=== PATIENT | female | born 1990 | race Caucasian/White ===

== ENCOUNTER 2018-05-05 06:18 | Emergency (ER) | payer OTHER, SELFPAY ==
--- OUTSIDE RECORDS SUMMARY | 2018-05-05 06:21 | XMS REPORT | Continuity of Care Document ---
:1990 Author Organization Interface Problems Problem Status Onset Classification Date Comments Source Date Reported 39 WKS PREG Active 06/08/20 [facility] CONTRACTIONS 17 City Active 06/08/20 [facility] DELIVERY 17 City PREG/BLEEDING Active 02/11/20 [facility] 14 Hospital Resolved 09/02/20 Problem 06/15/2017 [facility] 11 City OTHER Active 08/22/20 [facility] 11 Hospital BITE Active 08/17/[address] Active [facility] RELATED [facility] CONDITIONS, UNSP, UNSP Medications Medication Details Route Status Patient Ordering Order Source Instructions Provider Date ibuprofen 600 mg 600 mg=1 tab, Active oral tablet PO, Q6H, X 3 2016 [facility] day, # 12 tab, City 0 Refill(s) Acetaminophen 300 2 tab, PO, Q4H, Active MG / Codeine PRN Pain Score 2016 [facility] Phosphate 30 MG 4-6, X 3 day, # [facility] Oral Tablet 24 tab, 0 [Tylenol with Refill(s) Codeine #3] Docusate Sodium 100 mg=1 cap, Active 100 MG Oral PO, BID, PRN 2016 [facility] Capsule Constipation, # City 42 cap, 0 Refill(s) Acetaminophen 300 2 tab, Route: No Longer MG / Codeine PO, Drug Form: Active 2016 [facility] Phosphate 30 MG TAB, Dosing [facility] Oral Tablet Weight 81.818, [Tylenol with kg, Q4H, PRN Codeine #3] Pain Score 4-6, Start date: 06/10/17 8:27:00 CDT, Duration: 30 day, Stop date: 07/10/17 8:26:00 CDTNotes: Do not exceed 4gm/day of acetaminophen. (Same as: Tylenol with Codeine # 3) Saline Flush 0.9% 10 ml, Route: Inactive IVP, Drug Form: 2016 [facility] INJ, Dosing City Weight 81.818, kg, Q12H, Start date: 06/09/17 9:00:00 CDT, Duration: 30 day, Stop date: 07/08/17 21:00:00 CDTNotes: (Same as: BD Posiflush) 1 tab, Route: No Longer Multivitamins oral PO, Drug Form: [facility] 2016 [facility] tablet TAB, Dosing City Weight 81.818, kg, Daily, Start date: 06/09/17 9:00:00 CDT, Duration: 30 day, Stop date: 07/08/17 9:00:00 CDT Sodium Chloride 25 mL, Route: No Longer 0.9% IV IV, Start date: [facility] 2016 [facility] 06/09/17 [facility] 8:26:00 CDT, Duration: 30 day, Stop date: 07/09/17 8:25:00 CDT, PRN Line Flush BD Normal Saline 10 mL, Route: No Longer Flush IV, Drug Form: [facility] 2016 [facility] INJ, PRN, PRN [facility] Line Flush, Start date: 06/09/17 8:26:00 CDT, Duration: 30 day, Stop date: 07/09/17 8:25:00 CDTNotes: (Same as: BD Posiflush) Hydromorphone 0.2 mg, 0.1 mL, Inactive Route: IVP, 2016 [facility] Drug form: INJ, City Q3H, Dosing Weight 81.818, kg, PRN Pain Score 7-10, Start date: 06/09/17 8:23:00 CDT, Duration: 30 day, Stop date: 07/09/17 8:22:00 CDTNotes: Same as Dilaudid Ibuprofen 600 mg, 1 tab, No Longer Route: PO, Drug Active 2016 [facility] form: TAB, Q6H, [facility] Dosing Weight 81.818, kg, Start date: 06/09/17 0:00:00 CDT, Duration: 30 day, Stop date: 07/08/17 18:00:00 CDTNotes: (Same as: Motrin) "Do Not Crush" Take with food. Naloxone 0.4 mg, 1 mL, No Longer Route: IVP, [facility] 2016 [facility] Drug form: INJ, City ONCALL, Dosing Weight 81.818, kg, Start date: 06/08/17 23:00:00 CDT, Duration: 24 hr, Stop date: 06/09/17 22:59:00 CDTNotes: Same as Narcan 0.5 ML Bordetella 0.5 mL, Route: No Longer pertussis IM, Drug Form: Active 2016 [facility] filamentous SUSP, Dosing [facility] hemagglutinin Weight 81.818, vaccine, kg, ONCALL, inactivated 0.01 Start date: MG/ML / Bordetella 06/08/17 pertussis fimbriae 23:00:00 CDT, 2/3 vaccine, Duration: 1 inactivated 0.01 doses or times, MG/ML / Bordetella Stop date: pertussis 07/09/17 pertactin vaccine, 0:00:00 inactivated 0.006 CDTNotes: (Tdap MG/ML / Bordetella ) For Adolecent pertussis toxoid and Adult use vacci For IM Use. Same as: Adacel (Tdap) M-M-R II 0.5 mL, Route: No Longer SUB-Q, Drug Active 2016 [facility] Form: PDR/INJ, [facility] Dosing Weight 81.818, kg, ONCALL, Start date: 06/08/17 23:00:00 CDT, Duration: 1 doses or times, Stop date: 07/09/17 0:00:00 CDTNotes: (Same as: M-M-R II) (measles-mumps- rubella virus vaccine 0.5 ml INJ VL) WASTE: F/P - Red; E -Red GIVE PRIOR TO DISCHARGE fentaNYL (ANES) Route: IV, Drug Inactive form: INJ, 2016 [facility] ONCE, Stop [facility] date: 06/08/17 22:53:00 CDT Pitocin (ANES) Route: IV, Drug Inactive form: SOLN, 2016 [facility] ONCE, Stop [facility] date: 06/08/17 22:52:00 CDT Tramadol 100 mg, 2 tab, No Longer Route: PO, Drug Active 2016 [facility] form: TAB, Q6H, [facility] Dosing Weight 81.818, kg, PRN Pain Score 7-10, Start date: 06/08/17 22:52:00 CDT, Duration: 30 day, Stop date: 07/08/17 22:51:00 CDTNotes: Not to exceed 400mg/day. (Same As: Ultram) Saline Flush 0.9% 10 ml, Route: No Longer IVP, Drug Form: Active 2016 [facility] INJ, Dosing City Weight 81.818, kg, PRN, PRN Line Flush, Start date: 06/08/17 22:52:00 CDT, Duration: 30 day, Stop date: 07/08/17 22:51:00 CDTNotes: (Same as: BD Posiflush) Simethicone 160 mg, 2 tab, No Longer Route: PO, Drug Active 2016 [facility] form: [place], [facility] Q8H, Dosing Weight 81.818, kg, PRN Gas, Start date: 06/08/17 22:52:00 CDT, Duration: 30 day, Stop date: 07/08/17 22:51:00 CDTNotes: (Same as: Mylicon) zolpidem 5 mg, 1 tab, No Longer Route: PO, Drug Active 2016 [facility] form: TAB, City Bedtime, Dosing Weight 81.818, kg, PRN Insomnia, Start date: 06/08/17 22:52:00 CDT, Duration: 30 day, Stop date: 07/08/17 22:51:00 CDTNotes: (Same As: Ambien) lanolin topical 1 appl, Route: No Longer cream TOP, PRN, Drug Active 2016 [facility] form: OINT, PRN [facility] Other -See Comment, Start date: 06/08/17 22:52:00 CDT, Duration: 30 day, Stop date: 07/08/17 22:51:00 CDTNotes: (Same as:Lanolin) Acetaminophen 650 mg, 2 tab, No Longer Route: PO, Drug Active 2016 [facility] form: TAB, Q4H, [facility] Dosing Weight 81.818, kg, PRN Other -See Comment, Start date: 06/08/17 22:52:00 CDT, Duration: 30 day, Stop date: 07/08/17 22:51:00 CDTNotes: Do not exceed 4 gm/day. (Same as: Tylenol) Bisacodyl 15 mg, 3 tab, No Longer Route: PO, Drug [facility] 2016 [facility] form: ECTAB, City Daily, Dosing Weight 81.818, kg, PRN Other -See Comment, Start date: 06/08/17 22:52:00 CDT, Duration: 30 day, Stop date: 07/08/17 22:51:00 CDTNotes: (Same As: Dulcolax, Correctol) (Do Not Crush) "Do Not Crush" Docusate 100 mg, 1 cap, No Longer Route: PO, Drug Active 2016 [facility] form: CAP, BID, [facility] Dosing Weight 81.818, kg, PRN Constipation, Start date: 06/08/17 22:52:00 CDT, Duration: 30 day, Stop date: 07/08/17 22:51:00 CDTNotes: (Same as: Colace) (Do Not Crush) Lactated Ringers 1,000 mL, Rate: No Longer 1,000 mL 100 ml/hr, Active 2016 [facility] Infuse over: 10 City hr, Route: IV, Dosing Weight 81.818 kg, Total Volume: 1,000, Start date: 06/08/17 22:52:00 CDT, Duration: 30 day, Stop date: 07/08/17 22:51:00 CDT Oxytocin 30 unit, 500 No Longer mL, Rate: 42 Active 2016 [facility] ml/hr, Infuse City over: 11.9 hr, Dosing Weight 81.818, kg, Route: IV, Total Volume: 500 mL, Start date: 06/08/17 22:52:00 CDT, Duration: 2 day, Stop date: 06/10/17 22:51:00 CDT, Replace Every: 11.9 hr dexamethasone Route: IV, Drug Inactive (ANES) form: INJ, 2016 [facility] ONCE, Stop City date: 06/08/17 22:42:00 CDT bupivacaine (ANES) Route: Inactive INTRATHECAL, 2016 [facility] Drug Form: INJ, [facility] ONCE, Stop date: 06/08/17 22:32:00 CDT phenylephrine Route: IV, Drug Inactive (ANES) form: INJ, 2016 [facility] , date: 06/08/17 22:32:00 CDT ePHEDrine (ANES) Route: IV, Drug Inactive form: INJ, 2016 [facility] date: 06/08/17 22:32:00 CDT morphine Sulfate Route: IV, Drug Inactive (ANES) form: 2016 [facility] date: 06/08/17 22:32:00 CDT acetaminophen Route: IV, Drug Inactive (ANES) (ANES) form: , 2016 [facility] Start date: [facility] 06/08/17 22:31:00 CDT, Stop date: 06/08/17 23:31:00 CDT metoclopramide Route: IV, Drug Inactive (ANES) form: 2016 [facility] , date: 06/08/17 22:22:00 CDT ondansetron (ANES) Route: IV, Drug Inactive form: , 2016 [facility] , date: 06/08/17 22:22:00 CDT oxytocin (ANES) Route: IV, Drug Inactive (ANES) form: 2016 [facility] Start date: [facility] 06/08/17 22:18:00 CDT, Stop date: 06/08/17 23:18:00 CDT Ondansetron 4 mg, 2 mL, No Longer Route: IVP, Active 2016 [facility] Drug form: INJ, , Dosing Weight 81.818, kg, PRN Nausea & Vomiting, Start date: 06/08/17 22:05:00 CDTNotes: (Same as: [place]) MEDICATION WASTE Product Size: 4 mg Product Wasted: ___ mg Acetaminophen 1,000 mg, 100 No Longer mL, Route: Active 2016 [facility] IVPB, Drug City form: INJ, ONCE, Dosing Weight 81.818, kg, PRN Pain Score 1-3, Start date: 06/08/17 22:05:00 CDT, Duration: 1 doses or times, Stop date: Limited # of timesNotes: Infuse over 15 minutes Do not exceed 4gm/day of acetaminophen MEDICATION WASTE Product Size: 1000 mg Product Wasted: ___ mg Diphenhydramine 12.5 mg, 0.25 No Longer mL, Route: IVP, Active 2016 [facility] Drug form: INJ, City Q6H, Dosing Weight 81.818, kg, PRN Itching, Start date: 06/08/17 22:05:00 CDT, Duration: 30 day, Stop date: 07/08/17 22:04:00 CDTNotes: (Same as: Benadryl) Naloxone 0.4 mg, 1 mL, No Longer Route: IVP, [facility] 2016 [facility] Drug form: INJ, City Q2MIN, Dosing Weight 81.818, kg, PRN Narcotic Reversal, Start date: 06/08/17 22:05:00 CDT, Duration: 8 doses or times, Stop date: Limited # of timesNotes: Same as Narcan Periactin 4 mg, 1 tab, No Longer Route: PO, Drug Active 2016 [facility] form: TAB, TID, [facility] Dosing Weight 81.818, kg, PRN Allergic reaction, Start date: 06/08/17 22:04:00 CDT, Duration: 30 day, Stop date: 07/08/17 22:03:00 CDTNotes: (Same As: Periactin) Diphenhydramine 12.5 mg, 5 mL, No Longer Route: PO, Drug Active 2016 [facility] form: LIQ, Q6H, [facility] Dosing Weight 81.818, kg, PRN Itching, Start date: 06/08/17 22:04:00 CDT, Duration: 30 day, Stop date: 07/08/17 22:03:00 CDTNotes: (Same as: Benadryl) Ondansetron 4 mg, 2 mL, No Longer Route: IVP, Active 2016 [facility] Drug form: INJ, City Q6H, Dosing Weight 81.818, kg, PRN Nausea & Vomiting, Start date: 06/08/17 22:04:00 CDT, Duration: 24 hr, Stop date: 06/09/17 22:03:00 CDTNotes: (Same as: Zofran) MEDICATION WASTE Product Size: 4 mg Product Wasted: ___ mg Acetaminophen 1,000 mg, 2 No Longer tab, Route: PO, Active 2016 [facility] Drug form: TAB, City Q6H, Dosing Weight 81.818, kg, Priority: NOW, Start date: 06/08/17 22:04:00 CDT, Duration: 24 hr, Stop date: 06/09/17 22:00:00 CDTNotes: Max acetaminophen 4000 mg/day (4 gm/day). (Same as: Tylenol Extra Strength) Oxycodone 5 mg, 1 tab, No Longer Hydrochloride 5 MG Route: PO, Drug Active 2016 [facility] Oral Tablet form: TAB, Q4H, [facility] Dosing Weight 81.818, kg, PRN Pain Score 4-6, Start date: 06/08/17 22:04:00 CDT, Duration: 30 day, Stop date: 07/08/17 22:03:00 CDTNotes: (Same as: Roxicodone) ceFAZolin (ANES) Route: IV, Drug Inactive (ANES) form: INJ, 2016 [facility] Start date: [facility] 06/08/17 21:47:00 CDT, Stop date: 06/08/17 22:47:00 CDT LR 1000 mL INJ Route: IV, Inactive (ANES) Total Volume: 2016 [facility] 1,000, Start City date: 06/08/17 21:47:00 CDT, Stop date: 06/08/17 22:47:00 CDT Cefazolin 2 gm, 100 mL, No Longer Route: IVPB, Active 2016 [facility] Drug form: INJ, City ONCALL, Dosing Weight 81.818, kg, Start date: 06/08/17 20:00:00 CDT, Duration: 1 doses or times, Stop date: 07/09/17 0:00:00 CDT, ABX Indication: Surgical ProphylaxisNote s: Same as: Ancef Misoprostol 1,000 No Longer microgram, 5 Active 2016 [facility] tab, Route: ME, City Drug form: TAB, ONCALL, Dosing Weight 81.818, kg, Start date: 06/08/17 20:00:00 CDT, Duration: 30 day, Stop date: 07/08/17 19:59:00 CDTNotes: (Same as:Cytotec) Take with food Methylergonovine 0.2 mg, 1 mL, No Longer Route: IM, Drug [address] form: INJ, Vinny ONCBENITO, Dosing Weight 81.818, kg, Start date: 06/08/17 20:00:00 CDT, Duration: 30 day, Stop date: 07/08/17 19:59:00 CDTNotes: (Same as:Methergine) Carboprost 250 microgram, No Longer 1 mL, Route: [facility] 2016 [facility] IM, Drug form: [facility] INJ, ONCALL, Dosing Weight 81.818, kg, Start date: 06/08/17 20:00:00 CDT, Duration: 30 day, Stop date: 07/08/17 19:59:00 CDTNotes: (Same As: Hemabate) Terbutaline 0.25 mg, 0.25 No Longer mL, Route: [address] SUB-Q, Drug [facility] form: INJ, PATALL, Dosing Weight 81.818, kg, PRN Other -See Comment, Start date: 06/08/17 19:46:00 CDT, Duration: 1 doses or times, Stop date: 07/09/17 0:00:00 CDTNotes: DO NOT USE IN [employer]END[employer] AREA (Same As: Brethine) Oxytocin 30 unit, 500 No Longer mL, Rate: [address] ml/hr, Infuse [facility] over: 11.9 hr, Dosing Weight 81.818, kg, Route: IV, Total Volume: 500 mL, Start date: 06/08/17 19:46:00 CDT, Duration: 1 doses or times, Stop date: 06/09/17 7:39:00 CDT, Replace Every: 11.9 hr Metoclopramide 10 mg, 2 mL, No Longer Route: IVP, [address] Drug form: INJ, [place] Q6H, Dosing Weight 81.818, kg, PRN Nausea & Vomiting, Start date: 06/08/17 19:46:00 CDT, Duration: 30 day, Stop date: 07/08/17 19:45:00 CDTNotes: (Same as: Sanam) Ondansetron 4 mg, 2 mL, No Longer Route: IVP, Active 2016 [facility] Drug form: INJ, City Q8H, Dosing Weight 81.818, kg, PRN Nausea & Vomiting, Start date: 06/08/17 19:46:00 CDT, Duration: 30 day, Stop date: 07/08/17 19:45:00 CDTNotes: (Same as: [place]) MEDICATION WASTE Product Size: 4 mg Product Wasted: ___ mg Morphine 2 mg, 1 mL, No Longer Route: IVP, Active 2016 [facility] Drug form: City SOLN, Q2H, Dosing Weight 81.818, kg, PRN Pain Score 7-10, Start date: 06/08/17 19:46:00 CDT, Duration: 30 day, Stop date: 07/08/17 19:45:00 CDT Citric Acid / 30 mL, Route: No Longer sodium citrate PO, Drug Form: Active 2016 [facility] SOLN, Dosing City Weight 81.818, kg, ONCE, Start date: 06/08/17 19:46:00 CDT, Duration: 1 doses or times, Stop date: 06/08/17 19:46:00 CDTNotes: (Same As: Serenity Rezara-2) Sodium citrate-citric acid (500-334 mg/5 mL): 1 mL contains sodium 1 mEq/mL and bicarbonate 1 mEq/mL Calcium Chloride 1,000 mL, 1,000 No Longer 0.0014 MEQ/ML / ml/hr, Infuse Active [address] [place] [address] Potassium Chloride Over: 1 hr, [facility] 0.004 MEQ/ML / Route: IV, Sodium Chloride 1,000, Drug 0.103 MEQ/ML / form: INJ, Sodium Lactate ONCE, Dosing 0.028 MEQ/ML Weight 81.818 Injectable kg, Start date: Solution 06/08/17 19:46:00 CDT, Stop date: 06/08/17 19:46:00 CDT [place] 5/325 oral 1 tab, PO, Q6H, PO Active [facility] tablet PRN, 20 tab, 2010 [facility] for pain, Substitution Allowed, Maintenance, TAB Bactrim DS oral 1 tab, PO, BID, PO Active Bravo [facility] tablet 20 tab, 2010 [facility] Substitution Allowed, Maintenance [place] 5/325 oral 2 tab, Route: PO No Longer [facility] tablet PO, Drug Form: Active [address] [place] [address] TAB, ONCE, Start date: 08/19/11 17:52:00, Stop date: 08/19/11 17:52:00 Allergies, Adverse Reactions, Alerts Substance Category Reaction Severity Reaction Status Date Comments Source type Reported NKDA Assertion Drug Active [facility] naproxen Assertion Drug Active [facility] ciprofloxaci Assertion Drug Active n allergy [facility] Macrobid Assertion naproxen, Drug Active ciprofxac allergy [facility] [place][note 2] Immunizations Immunization Date Given Site Status Last Updated Comments Source Results Order Name Results Value Reference Date Interpretation Comments Source Range HEMATOLOGY Hgb 10.8 g/dL 12.0 - 06/09 16.0 [facility] HEMATOLOGY Hct 32.7 % 36.0 - 06/09 48.0 [facility] IMMUNOLOGY Rubella IgG 42.7 >=10.0 06/09 [iU]/mL IU/mL [facility] BLOOD BANK Antibody Scrn Negative 06/09 RESULTS [facility] (06/08/17 7:53 PM) [facility] BLOOD BANK Rhig Reqd See Note 1 06/09 Result Comment: 06/08/2017 22:11 [id number] RESULTS /2016 This patient is not a candidate for Rh(O)D immune globulin. [facility] (06/08/17 7:53 PM) [facility] BLOOD BANK ABO/Rh A POS 06/09 RESULTS [facility] CHEM PANEL eGFR 137 06/09 Result Comment: The eGFR is calculated using the CKD-EPI formula. In most young, healthy individuals the eGFR will be >90 mL/ min/1.73m2. The eGFR declines with age. An eGFR of 60-89 may be normal in mL/min/1. some populations, particularly the elderly, for whom the CKD-EPI formula has not been extensively validated. Use of the eGFR is not recommended in the following populations: [address] Individuals with unstable creatinine concentrations, including patients and those with serious co-morbid conditions. Patients with extremes in muscle mass or diet. The data above are obtained from the National Kidney Disease Education Program (NKDEP) which additionally recommends that when the eGFR is used in patients with extremes of body mass index for purposes of drug dosing, the eGFR should be multiplied by the estimated BMI. CHEM PANEL Creatinine 0.48 0.50 - 06/09 Lvl mg/dL 1. [facility] CHEM PANEL AST 22 unit/L 0 - 37 06/09 [facility] CHEM PANEL ALT 23 unit/L 0 - 65 06/09 [facility] DRUG SCREEN UDS Note See Note 06/09 [facility] (06/08/17 7:53 PM) DRUG SCREEN U Amph Scr Negative Negative 06/09 [facility] (06/08/17 7:53 PM) DRUG SCREEN U Rita Scr Negative Negative 06/09 [facility] (06/08/17 7:53 PM) DRUG SCREEN U Benzodia Negative Negative 06/09 [facility] (06/08/17 7:53 PM) DRUG SCREEN U Cocaine Scr Negative Negative 06/09 [facility] (06/08/17 7:53 PM) DRUG SCREEN U Cannab Scr Negative Negative 06/09 [facility] (06/08/17 7:53 PM) DRUG SCREEN U Phencyc Scr Negative Negative 06/09 [facility] (06/08/17 7:53 PM) DRUG SCREEN U Opiate Scr Negative Negative 06/09 [facility] (06/08/17 7:53 PM) HEMATOLOGY Eosinophils 0.8 % 0.0 - 4.0 06/09 [facility] HEMATOLOGY Lymphocytes 17.7 % 20.0 - 06/09 MH 40.0 [facility] HEMATOLOGY Basophils 0.3 % 0.0 - 1.0 06/09 [facility] HEMATOLOGY Monocytes 5.6 % 2.0 - 12.0 06/09 [facility] HEMATOLOGY Segs 75.6 % 45.0 - 06/09 75.0 [facility] HEMATOLOGY Eosinophils # 0.1 K/CMM 0.0 - 0.5 06/09 [facility] HEMATOLOGY Monocytes # 0.6 K/CMM 0.0 - 0.8 06/09 [facility] HEMATOLOGY Lymphocytes # 1.8 K/CMM 1.0 - 5.5 06/09 [facility] HEMATOLOGY Segs-Bands # 7.6 K/CMM 1.5 - 8.1 06/09 [facility] HEMATOLOGY Platelet 188 K/CMM 133 - 450 06/09 [facility] HEMATOLOGY MPV 7.5 fL 7.4 - 10.4 06/09 [facility] HEMATOLOGY WBC 10.1 3.7 - 10.4 06/09 K/CMM /2016 [facility] HEMATOLOGY RBC 3.96 4.20 - 06/09 [facility] /2016 [facility] HEMATOLOGY MCHC 33.1 g/dL 32.0 - 06/09 36.0 [facility] HEMATOLOGY RDW 15.0 % 11.5 - 06/09 MH 14.5 [facility] HEMATOLOGY MCV 79.6 fL 80.0 - 06/09 98.0 [facility] HEMATOLOGY Hct 31.5 % 36.0 - 06/09 MH 48.0 [facility] HEMATOLOGY Hgb 10.4 g/dL 12.0 - 06/09 MH 16.0 [facility] HEMATOLOGY MCH 26.3 pg 27.0 - 06/09 31.0 [facility] IMMUNOLOGY HIV. Negative Negative 06/09 [facility] (06/08/17 7:53 PM) IMMUNOLOGY Treponemal Non Reactive Non 06/09 Scr Reactive [facility] (06/08/17 7:53 PM) IMMUNOLOGY Hep Bs Ag Negative Negative 06/09 [facility] (06/08/17 7:53 PM) URINE CHEM U Prot/Creat 0.4 06/09 [facility] URINE CHEM U Protein 21.8 06/09 mg/dL [facility] URINE CHEM U Creatinine 55.90 06/09 mg/dL [facility] URINE AND UA Glucose Negative Negative 02/10 [facility]2013 [facility] (02/10/14 3:09 PM) URINE AND UA Ketones Negative Negative 02/10 [facility] *NA* (02/10/14 3:09 PM) URINE AND UA Bacteria Many /HPF None Seen 02/10 [facility] /HPF [facility] URINE AND UA RBC 0-2 /HPF 0 - 2 02/10 [facility] URINE AND UA Nitrite Positive Negative 02/10 [facility] *ABN* (02/10/14 3:09 PM) URINE AND UA WBC 3-5 /HPF None Seen 02/10 [facility] /HPF [facility] URINE AND UA Sq Epi Many /LPF Few /LPF 02/10 [facility] URINE AND UA Leuk Est Small Negative 02/10 [facility] *ABN* (02/10/14 3:09 PM) URINE AND UA Blood Large Negative 02/10 [facility] *ABN* (02/10/14 3:09 PM) URINE AND UA Bili Negative Negative 02/10 [facility] *NA* (02/10/14 3:09 PM) URINE AND UA 0.2 EU/dL 0.1 - 1.0 02/10 [facility] Urobilinogen [facility] URINE AND UA Protein Trace Negative 02/10 [facility] *ABN* (02/10/14 3:09 PM) URINE AND UA pH 8.0 5.0 - 8.0 02/10 [facility] STOOL [facility] URINE AND UA Color Yellow Yellow 02/10 [facility] *NA* (02/10/14 3:09 PM) URINE AND UA Spec Grav 1.015 <=1.030 02/10 [facility] URINE AND UA Turbidity Cloudy Clear 02/10 [facility] *ABN* (02/10/14 3:09 PM) URINE CHEM U Preg Positive Negative 02/10 [facility] *ABN* (02/10/14 3:09 PM) Vital Signs Vital Sign Value Date Comments Source Temperature Oral (F) 98 F 06/12/2017 [facility] Heart Rate 74 06/12/2017 [facility] Respitory Rate 18 06/12/2017 [facility] Systolic (mm Hg) 113 06/12/2017 [facility] Diastolic (mm Hg) 67 06/12/2017 [facility] Heart Rate 80 06/12/2017 [facility] Respitory Rate 18 06/12/2017 [facility] Systolic (mm Hg) 124 06/12/2017 [facility] Diastolic (mm Hg) 69 06/12/2017 [facility] Temperature Oral (F) 97.5 F 06/12/2017 [facility] Systolic (mm Hg) 122 06/11/2017 [facility] Diastolic (mm Hg) 72 06/11/2017 [facility] Respitory Rate 18 06/11/2017 [facility] Heart Rate 88 06/11/2017 [facility] Temperature Oral (F) 98.9 F 06/11/2017 [facility] Weight 81.818 06/09/2017 [facility] Height 157.48 cm 06/09/2017 [facility] BMI Calculated 32.99 06/09/2017 [facility] Weight 81.818 06/08/2017 [facility] BMI Calculated 32.99 06/08/2017 [facility] Height 157.48 cm 06/08/2017 [facility] Weight 55.909 02/10/2014 [facility] Height 157.48 cm 02/10/2014 [facility] [facility] BMI Calculated 22.54 02/10/2014 [facility] Temperature Oral (F) 98.5 F 02/10/2014 [facility] Heart Rate 95 02/10/2014 [facility] Respitory Rate 18 02/10/2014 [facility] Systolic (mm Hg) 123 02/10/2014 [facility] Diastolic (mm Hg) 79 02/10/2014 [facility] Height 160.02 cm 08/22/2011 [facility] Weight 54.545 08/22/2011 [facility] Temperature Oral (F) 98.1 F 08/22/2011 [facility] Heart Rate 99.0 08/22/2011 [facility] Respitory Rate 16.0 08/22/2011 [facility] Systolic (mm Hg) 128.0 08/22/2011 [facility] Diastolic (mm Hg) 61.0 08/22/2011 [facility] Weight 54.545 08/19/2011 [facility] Height 162.56 cm 08/19/2011 [facility] Temperature Oral (F) 98.6 F 08/19/2011 [facility] Respitory Rate 18.0 08/19/2011 [facility] Heart Rate 109.0 08/19/2011 [facility] Diastolic (mm Hg) 72.0 08/19/2011 [facility] Systolic (mm Hg) 123.0 08/19/2011 [facility] Encounters Location Location Encounter Encounter Reason Attending ADM DC Status Source Details Type Number For Provider Date Date Visit [facility] Emergency [id number] CAITLYN 08/19 08/19 Active [facility] /2010 [facility] Emergency [id number] CAITLYN 08/22 08/22 Active [facility] /2010 [facility] [id number] Bina 02/10 02/10 [facility] Emergency Marielena /2013 [facility] Inpatient [id number] Lety 06/08 06/12 Isaac Ayala /2016 [facility] Procedures Procedure Code Date Perfomer Comments Source section [id number] [facility]
--- OUTSIDE RECORDS SUMMARY | 2018-05-05 06:21 | XMS REPORT | CCD ---
:1990 Author Organization [facility] Care Team Providers Name Role Phone PCP, None Consulting Provider Unavailable Milena Mendez Consulting Provider Jayda Jackson Consulting Provider Unavailable [employer], Login Consulting Provider Unavailable Dave Larson Consulting Provider Unavailable Cece Morgan Consulting Provider [phone] Sharon Holder Consulting Provider Gaby Niño Consulting Provider Unavailable Marcie Vazquez Consulting Provider Unavailable Allergies, Adverse Reactions, Alerts Substance Reaction Status NKDA ?? Active Vital Signs Most recent to oldest [Reference Range]: 1 Height 160.02 cm (08/22/2011 10:34:00) ?? Temperature Oral [96.4-99.1 DegF] 98.1 DegF (08/22/2011 10:34:00) ?? Systolic Blood Pressure [90-140 mmHg] 128 mmHg (08/22/2011 10:34:00) ?? Diastolic Blood Pressure [60-90 mmHg] 61 mmHg (08/22/2011 10:34:00) ?? Respiratory Rate [14-20 BRMIN] 16 BRMIN (08/22/2011 10:34:00) ?? Peripheral Pulse Rate [60-100 bpm] 99 bpm (08/22/2011 10:34:00) ?? Weight 54.545 kg (08/22/2011 10:34:00) ??
--- OUTSIDE RECORDS SUMMARY | 2018-05-05 06:21 | XMS REPORT | CCD ---
:1990 Author Organization [facility] Care Team Providers Name Role Phone PCP, None Consulting Provider Unavailable [employer], Login Consulting Provider Unavailable Audra Bravo Consulting Provider Maged Lemon Consulting Provider Unavailable Sharon Holder Consulting Provider Shantelle Colón Consulting Provider Unavailable Gaby Niño Consulting Provider Unavailable Brittnee Churchill Consulting Provider Unavailable Casey Martinez Consulting Provider Unavailable Amber Maxwell Consulting Provider [phone] Diony Engel Consulting Provider [phone] Allergies, Adverse Reactions, Alerts Substance Reaction Status NKDA ?? Active Medications Medication Instructions Start Date End Date Status [place] 5/325 oral tablet 1 tab, PO, Q6H, PRN, 20 tab, 08/19/2011 ?? Ordered for pain, Substitution Allowed, Maintenance, TAB Bactrim DS oral tablet 1 tab, PO, BID, 20 tab, 08/19/2011 08/29/2011 Ordered Substitution Allowed, Maintenance [place] 5/325 oral tablet 2 tab, Route: PO, Drug Form: 08/19/2011 08/19/2011 Completed TAB, ONCE, Start date: 08/19/11 17:52:00, Stop date: 08/19/11 17:52:00 Vital Signs Most recent to oldest [Reference Range]: 1 Height 162.56 cm (08/19/2011 14:51:00) ?? Temperature Oral [96.4-99.1 DegF] 98.6 DegF (08/19/2011 14:51:00) ?? Systolic Blood Pressure [90-140 mmHg] 123 mmHg (08/19/2011 14:51:00) ?? Diastolic Blood Pressure [60-90 mmHg] 72 mmHg (08/19/2011 14:51:00) ?? Respiratory Rate [14-20 BRMIN] 18 BRMIN (08/19/2011 14:51:00) ?? Peripheral Pulse Rate [60-100 bpm] 109 bpm *HI* (08/19/2011 14:51:00) ?? Weight 54.545 kg (08/19/2011 14:51:00) ??
--- OUTSIDE RECORDS SUMMARY | 2018-05-05 06:22 | XMS REPORT | Summary of Care ---
:1990 Author Organization [facility] Address [address] [place] [id number] Encounter [facility](PILAR) [phone] Date(s): 06/08/17 - 06/12/[address] [address]- Discharge Disposition: Home or Self Care Attending Physician: Lety Ayala DO Admitting Physician: Lety Ayala DO Vital Signs Most recent to oldest 1 2 3 [Reference Range]: Height 157.48 cm 157.48 cm (06/08/17 7:28 PM) (06/08/17 6:59 PM) Temperature Oral [96.4-99.1 98 DegF 97.5 DegF 98.9 DegF DegF] (06/12/17 8:00 AM) (06/12/17 12:00 AM) (06/11/17 4:55 PM) Blood Pressure [90-140/60-90 113/67 mmHg 124/69 mmHg 122/72 mmHg mmHg] (06/12/17 8:00 AM) (06/12/17 12:00 AM) (06/11/17 4:55 PM) Respiratory Rate [14-20 BRMIN] 18 BRMIN 18 BRMIN 18 BRMIN (06/12/17 8:00 AM) (06/12/17 12:00 AM) (06/11/17 4:55 PM) Peripheral Pulse Rate [60-100 74 bpm 80 bpm 88 bpm bpm] (06/12/17 8:00 AM) (06/12/17 12:00 AM) (06/11/17 4:55 PM) Weight 81.818 kg 81.818 kg (06/08/17 7:28 PM) (06/08/17 6:59 PM) Body Mass Index 32.99 m2 32.99 m2 (06/08/17 7:28 PM) (06/08/17 6:59 PM) Problem List Condition Effective Dates Status Health Status Informant (Confirmed) 09/02/11 - 2011 Resolved (Confirmed) 01/14/15 - 2015 Resolved (Confirmed) 09/02/09 - 2009 Resolved (Confirmed) 06/08/17 - 06/08/17 Resolved Allergies, Adverse Reactions, Alerts Substance Reaction Severity Status ciprofloxacin Active Macrobid naproxen Active ciprofloxacin naproxen Active Medications acetaminophen 1,000 mg, 2 tab, Route: PO, Drug form: TAB, Q6H, Dosing Weight 81.818, kg, Priority: NOW, Start date: 06/08/17 22:04:00 CDT, Duration: 24 hr, Stop date: 22:00:00 CDT Notes: Max acetaminophen 4000 mg/day (4 gm/day). (Same as: Tylenol Extra Strength) Start Date: 06/08/17 Stop Date: 06/09/17 Status: Completedacetaminophen 650 mg, 2 tab, Route: PO, Drug form: TAB, Q4H, Dosing Weight 81.818, kg, PRN Other -See Comment, Start date: 06/08/17 22:52:00 CDT, Duration: 30 day, Stop date: 07/08/17 22:51:00 CDT Notes: Do not exceed 4 gm/day. (Same as: Tylenol) Start Date: 06/08/17 Stop Date: 06/12/17 Status: Discontinuedacetaminophen (ANES) (ANES) Route: IV, Drug form: INJ, Start date: 06/08/17 22:31:00 CDT, Stop date: 23:31:00 CDT Start Date: 06/08/17 Stop Date: 06/08/17 Status: CompletedANES acetaminophen 1,000 mg, 100 mL, Route: IVPB, Drug form: INJ, ONCE, Dosing Weight 81.818, kg, PRN Pain Score 1-3, Start date: 06/08/17 22:05:00 CDT, Duration: 1 doses or times, Stop date: Limited # of times Notes: Infuse over 15 minutesDo not exceed 4gm/day of acetaminophen MEDICATION WASTE ProductSize: 1000 mgProduct Wasted: ___ mg Start Date: 06/08/17 Stop Date: 06/09/17 Status: DiscontinuedANES diphenhydrAMINE 12.5 mg, 0.25 mL, Route: IVP, Drug form: INJ, Q6H, Dosing Weight 81.818, kg, PRN Itching, Start date: 06/08/17 22:05:00 CDT, Duration: 30 day, Stop date: 22:04:00 CDT Notes: (Same as: Benadryl) Start Date: 06/08/17 Stop Date: 06/09/17 Status: DiscontinuedANES naloxone 0.4 mg, 1 mL, Route: IVP, Drug form: INJ, Q2MIN, Dosing Weight 81.818, kg, PRN Narcotic Reversal, Start date: 06/08/17 22:05:00 CDT, Duration: 8 doses or times , Stop date: Limited # of times Notes: Same as Narcan Start Date: 06/08/17 Stop Date: 06/09/17 Status: DiscontinuedANES ondansetron 4 mg, 2 mL, Route: IVP, Drug form: INJ, ONCE, Dosing Weight 81.818, kg, PRN Nausea & Vomiting, Start date: 06/08/17 22:05:00 CDT Notes: (Same as: Logan) MEDICATION WASTE Product Size: 4 mgProduct Wasted: ___ mg Start Date: 06/08/17 Stop Date: 06/09/17 Status: DiscontinuedBD Normal Saline Flush 10 mL, Route: IV, Drug Form: INJ, PRN, PRN Line Flush, Start date: 06/09/17 8:26 :00 CDT, Duration: 30 day, Stop date: 07/09/17 8:25:00 CDT Notes: (Same as: BD Posiflush) Start Date: 06/09/17 Stop Date: 06/12/17 Status: DiscontinuedBD Normal Saline Flush 5 mL, Route: IV, Drug Form: INJ, PRN, PRN Line Flush, Start date: 06/09/17 8:26: 00 CDT, Duration: 30day, Stop date: 07/09/17 8:25:00 CDT Notes: (Same as: BD Posiflush) Start Date: 06/09/17 Stop Date: 06/12/17 Status: Discontinuedbisacodyl 15 mg, 3 tab, Route: PO, Drug form: ECTAB, Daily, Dosing Weight 81.818, kg, PRN Other -See Comment, Start date: 06/08/17 22:52:00 CDT, Duration: 30 day, Stop date: 07/08/17 22:51:00 CDT Notes: (Same As: Dulcolax, Correctol) (Do Not Crush) "Do Not Crush" Start Date: 06/08/17 Stop Date: 06/12/17 Status: Discontinuedbisacodyl 10 mg, 1 supp, Route: ND, Drug form: SUPP, PRN, Dosing Weight 81.818, kg, PRN Other -See Comment, Start date: 06/08/17 22:52:00 CDT, Duration: 30 day, Stop date: 07/08/17 22:51:00 CDT Notes: (Same As: Dulcolax, Bisco-Lax) Start Date: 06/08/17 Stop Date: 06/12/17 Status: Discontinuedbupivacaine (ANES) Route: INTRATHECAL, Drug Form: INJ, ONCE, Stop date: 06/08/17 22:32:00 CDT Start Date: 06/08/17 Stop Date: 06/08/17 Status: Completedcarboprost 250 microgram, 1 mL, Route: IM, Drug form: INJ, ONCALL, Dosing Weight 81.818, kg , Start date: 06/08/17 20:00:00 CDT, Duration: 30 day, Stop date: 07/08/17 19:59 :00 CDT Notes: (Same As: Hemabate) Start Date: 06/08/17 Stop Date: 06/09/17 Status: DiscontinuedceFAZolin 2 gm, 100 mL, Route: IVPB, Drug form: INJ, ONCALL, Dosing Weight 81.818, kg, Start date: 06/08/17 20:00:00 CDT, Duration: 1 doses or times, Stop date: 0:00:00 CDT, ABX Indication: Surgical Prophylaxis Notes: Same as: Ancef Start Date: 06/08/17 Stop Date: 06/09/17 Status: DiscontinuedceFAZolin (ANES) (ANES) Route: IV, Drug form: INJ, Start date: 06/08/17 21:47:00 CDT, Stop date: 22:47:00 CDT Start Date: 06/08/17 Stop Date: 06/08/17 Status: Completedcitric acid-sodium citrate 30 mL, Route: PO, Drug Form: SOLN, Dosing Weight 81.818, kg, ONCE, Start date: 06/08/17 19:46:00 CDT, Duration: 1 doses or times, Stop date: 06/08/17 19:46:00 CDT Notes: (Same As: Bicitra, Cytra-2) Sodium citrate-citric acid (500-334 mg/5 mL) : 1 mL contains sodium 1 mEq/mL and bicarbonate 1 mEq/mL Start Date: 06/08/17 Stop Date: 06/09/17 Status: Discontinueddexamethasone (ANES) Route: IV, Drug form: INJ, ONCE, Stop date: 06/08/17 22:42:00 CDT Start Date: 06/08/17 Stop Date: 06/08/17 Status: CompleteddiphenhydrAMINE 12.5 mg, 5 mL, Route: PO, Drug form: LIQ, Q6H, Dosing Weight 81.818, kg, PRN Itching, Start date: 06/08/17 22:04:00 CDT, Duration: 30 day, Stop date: 22:03:00 CDT Notes: (Same as: Benadryl) Start Date: 06/08/17 Stop Date: 06/09/17 Status: Discontinueddocusate 100 mg, 1 cap, Route: PO, Drug form: CAP, BID, Dosing Weight 81.818, kg, PRN Constipation, Start date: 06/08/17 22:52:00 CDT, Duration: 30 day, Stop date: 22:51:00 CDT Notes: (Same as: Colace) (Do Not Crush) Start Date: 06/08/17 Stop Date: 06/12/17 Status: Discontinueddocusate sodium 100 mg oral capsule 100 mg=1 cap, PO, BID, PRN Constipation, # 42 cap, 0 Refill(s) Start Date: 06/12/17 Stop Date: 07/03/17 Status: OrderedePHEDrine (ANES) Route: IV, Drug form: INJ, ONCE, Stop date: 06/08/17 22:32:00 CDT Start Date: 06/08/17 Stop Date: 06/08/17 Status: CompletedfentaNYL (ANES) Route: IV, Drug form: INJ, ONCE, Stop date: 06/08/17 22:53:00 CDT Start Date: 06/08/17 Stop Date: 06/08/17 Status: Completedhydromorphone 0.2 mg, 0.1 mL, Route: IVP, Drug form: INJ, Q3H, Dosing Weight 81.818, kg, PRN Pain Score 7-10, Start date: 06/09/17 8:23:00 CDT, Duration: 30 day, Stop date: 07/09/17 8:22:00 CDT Notes: Same as Dilaudid Start Date: 06/09/17 Stop Date: 06/09/17 Status: Discontinuedibuprofen 600 mg, 1 tab, Route: PO, Drug form: TAB, Q6H, Dosing Weight 81.818, kg, Start date: 06/09/17 0:00:00 CDT, Duration: 30 day, Stop date: 07/08/17 18:00:00 CDT Notes: (Same as: Motrin)"Do Not Crush" Take with food. Start Date: 06/09/17 Stop Date: 06/12/17 Status: Discontinuedibuprofen 600 mg oral tablet 600 mg=1 tab, PO, Q6H, X 3 day, # 12 tab, 0 Refill(s) Start Date: 06/12/17 Stop Date: 06/15/17 Status: OrderedLactated Ringers (Bolus) IV 1,000 mL, 1,000 ml/hr, Infuse Over: 1 hr, Route: IV, 1,000, Drug form: INJ, ONCE , Dosing Weight 81.818 kg, Start date: 06/08/17 19:46:00 CDT, Stop date: 19:46:00 CDT Start Date: 06/08/17 Stop Date: 06/09/17 Status: DiscontinuedLactated Ringers 1,000 mL 1,000 mL, Rate: 100 ml/hr, Infuse over: 10 hr, Route: IV, Dosing Weight 81.818 kg, Total Volume: 1,000, Start date: 06/08/17 22:52:00 CDT, Duration: 30 day, Stop date: 07/08/17 22:51:00 CDT Start Date: 06/08/17 Stop Date: 06/12/17 Status: DiscontinuedLactated Ringers 1,000 mL 1,000 mL, Rate: 125 ml/hr, Infuse over: 8 hr, Route: IV, Dosing Weight 81.818 kg , Total Volume: 1,000, Start date: 06/08/17 19:46:00 CDT, Duration: 30 day, Stop date: 07/08/17 19:45:00 CDT Start Date: 06/08/17 Stop Date: 06/09/17 Status: Discontinuedlanolin topical cream 1 appl, Route: TOP, PRN, Drug form: OINT, PRN Other -See Comment, Start date: 22:52:00 CDT,Duration: 30 day, Stop date: 07/08/17 22:51:00 CDT Notes: (Same as:Lanolin) Start Date: 06/08/17 Stop Date: 06/12/17 Status: DiscontinuedLR 1000 mL INJ (ANES) Route: IV, Total Volume: 1,000, Start date: 06/08/17 21:47:00 CDT, Stop date: 22:47:00 CDT Start Date: 06/08/17 Stop Date: 06/08/17 Status: QgfljirkpP-K-U II 0.5 mL, Route: SUB-Q, Drug Form: PDR/INJ, Dosing Weight 81.818, kg, ONCALL, Start date: 06/08/17 23:00:00 CDT, Duration: 1 doses or times, Stop date: 0:00:00 CDT Notes: (Same as: M-M-R II) (vyqmxfd-xyrnm-cevjmpb virus vaccine 0.5 ml INJ VL) WASTE: F/P - Red; E -Red GIVE PRIOR TO DISCHARGE Start Date: 06/08/17 Stop Date: 06/12/17 Status: Discontinuedmethylergonovine 0.2 mg, 1 mL, Route: IM, Drug form: INJ, ONCALL, Dosing Weight 81.818, kg, Start date: 06/08/17 20:00:00 CDT, Duration: 30 day, Stop date: 07/08/17 19:59: 00 CDT Notes: (Same as:Methergine) Start Date: 06/08/17 Stop Date: 06/09/17 Status: Discontinuedmetoclopramide 10 mg, 2 mL, Route: IVP, Drug form: INJ, Q6H, Dosing Weight 81.818, kg, PRN Nausea & Vomiting, Start date: 06/08/17 19:46:00 CDT, Duration: 30 day, Stop date: 07/08/17 19:45:00 CDT Notes: (Same as: Reglan) Start Date: 06/08/17 Stop Date: 06/09/17 Status: Discontinuedmetoclopramide (ANES) Route: IV, Drug form: INJ, ONCE, Stop date: 06/08/17 22:22:00 CDT Start Date: 06/08/17 Stop Date: 06/08/17 Status: Completedmisoprostol 1,000 microgram, 5 tab, Route: ND, Drug form: TAB, ONCALL, Dosing Weight 81.818 , kg, Start date: 06/08/17 20:00:00 CDT, Duration: 30 day, Stop date: 07/08/17 19:59:00 CDT Notes: (Same as:Cytotec) Take with food Start Date: 06/08/17 Stop Date: 06/09/17 Status: Discontinuedmorphine Sulfate 2 mg, 1 mL, Route: IVP, Drug form: SOLN, Q2H, Dosing Weight 81.818, kg, PRN Pain Score 7-10, Start date: 06/08/17 19:46:00 CDT, Duration: 30 day, Stop date : 07/08/17 19:45:00 CDT Start Date: 06/08/17 Stop Date: 06/09/17 Status: Discontinuedmorphine Sulfate (ANES) Route: IV, Drug form: SOLN, ONCE, Stop date: 06/08/17 22:32:00 CDT Start Date: 06/08/17 Stop Date: 06/08/17 Status: Completednaloxone 0.4 mg, 1 mL, Route: IVP, Drug form: INJ, ONCALL, Dosing Weight 81.818, kg, Start date: 06/08/17 23:00:00 CDT, Duration: 24 hr, Stop date: 06/09/17 22:59: 00 CDT Notes: Same as Narcan Start Date: 06/08/17 Stop Date: 06/09/17 Status: Discontinuedondansetron 4 mg, 2 mL, Route: IVP, Drug form: INJ, Q6H, Dosing Weight 81.818, kg, PRN Nausea & Vomiting, Start date: 06/08/17 22:04:00 CDT, Duration: 24 hr, Stop date: 06/09/17 22:03:00 CDT Notes: (Same as: Logan) MEDICATION WASTE Product Size: 4 mgProduct Wasted: ___ mg Start Date: 06/08/17 Stop Date: 06/09/17 Status: Completedondansetron 4 mg, 2 mL, Route: IVP, Drug form: INJ, Q8H, Dosing Weight 81.818, kg, PRN Nausea & Vomiting, Start date: 06/08/17 19:46:00 CDT, Duration: 30 day, Stop date: 07/08/17 19:45:00 CDT Notes: (Same as: Logan) MEDICATION WASTE Product Size: 4 mgProduct Wasted: ___ mg Start Date: 06/08/17 Stop Date: 06/09/17 Status: Discontinuedondansetron (ANES) Route: IV, Drug form: INJ, ONCE, Stop date: 06/08/17 22:22:00 CDT Start Date: 06/08/17 Stop Date: 06/08/17 Status: CompletedoxyCODONE 5 mg immediate release 5 mg, 1 tab, Route: PO, Drug form: TAB, Q4H, Dosing Weight 81.818, kg, PRN Pain Score 4-6, Start date: 06/08/17 22:04:00 CDT, Duration: 30 day, Stop date: 07/08 22:03:00 CDT Notes: (Same as: Roxicodone) Start Date: 06/08/17 Stop Date: 06/09/17 Status: DiscontinuedoxyCODONE 5 mg immediate release 10 mg, 2 tab, Route: PO, Drug form: TAB, Q4H, Dosing Weight 81.818, kg, PRN Pain Score 7-10, Start date: 06/08/17 22:04:00 CDT, Duration: 30 day, Stop date : 07/08/17 22:03:00 CDT Notes: (Same as: Roxicodone) Start Date: 06/08/17 Stop Date: 06/09/17 Status: Discontinuedoxytocin (ANES) (ANES) Route: IV, Drug form: SOLN, Start date: 06/08/17 22:18:00 CDT, Stop date: 23:18:00 CDT Start Date: 06/08/17 Stop Date: 06/08/17 Status: Completedoxytocin 30 units/NS 500 ml 30 unit 30 unit, 500 mL, Rate: 42 ml/hr, Infuse over: 11.9 hr, Dosing Weight 81.818, kg , Route: IV, Total Volume: 500 mL, Start date: 06/08/17 22:52:00 CDT, Duration: 2 day, Stop date: 06/10/17 22:51:00 CDT, Replace Every: 11.9 hr Start Date: 06/08/17 Stop Date: 06/10/17 Status: Completedoxytocin 30 units/NS 500 ml 30 unit 30 unit, 500 mL, Rate: 42 ml/hr, Infuse over: 11.9 hr, Dosing Weight 81.818, kg , Route: IV, Total Volume: 500 mL, Start date: 06/08/17 19:46:00 CDT, Duration: 1 doses or times, Stop date: 06/09/17 7:39:00 CDT, Replace Every: 11.9 hr Start Date: 06/08/17 Stop Date: 06/09/17 Status: CompletedPeriactin 4 mg, 1 tab, Route: PO, Drug form: TAB, TID, Dosing Weight 81.818, kg, PRN Allergic reaction, Start date: 06/08/17 22:04:00 CDT, Duration: 30 day, Stop date: 07/08/17 22:03:00 CDT Notes: (Same As: Periactin) Start Date: 06/08/17 Stop Date: 06/09/17 Status: Discontinuedphenylephrine (ANES) Route: IV, Drug form: INJ, ONCE, Stop date: 06/08/17 22:32:00 CDT Start Date: 06/08/17 Stop Date: 06/08/17 Status: CompletedPitocin (ANES) Route: IV, Drug form: SOLN, ONCE, Stop date: 06/08/17 22:52:00 CDT Start Date: 06/08/17 Stop Date: 06/08/17 Status: CompletedPrenatal Multivitamins oral tablet 1 tab, Route: PO, Drug Form: TAB, Dosing Weight 81.818, kg, Daily, Start date: 06/09/17 9:00:00 CDT,Duration: 30 day, Stop date: 07/08/17 9:00:00 CDT Start Date: 06/09/17 Stop Date: 06/12/17 Status: DiscontinuedSaline Flush 0.9% 10 ml, Route: IVP, Drug Form: INJ, Dosing Weight 81.818, kg, Q12H, Start date: 06/09/17 9:00:00 CDT,Duration: 30 day, Stop date: 07/08/17 21:00:00 CDT Notes: (Same as: BD Posiflush) Start Date: 06/09/17 Stop Date: 06/09/17 Status: DiscontinuedSaline Flush 0.9% 10 ml, Route: IVP, Drug Form: INJ, Dosing Weight 81.818, kg, PRN, PRN Line Flush , Start date: 06/08/17 22:52:00 CDT, Duration: 30 day, Stop date: 07/08/17 22:51 :00 CDT Notes: (Same as: BD Posiflush) Start Date: 06/08/17 Stop Date: 06/09/17 Status: Discontinuedsimethicone 160 mg, 2 tab, Route: PO, Drug form: CHEWTAB, Q8H, Dosing Weight 81.818, kg, PRN Gas, Start date: 06/08/17 22:52:00 CDT, Duration: 30 day, Stop date: 22:51:00 CDT Notes: (Same as: Mylicon) Start Date: 06/08/17 Stop Date: 06/12/17 Status: DiscontinuedSodium Chloride 0.9% IV 25 mL, Route: IV, Start date: 06/09/17 8:26:00 CDT, Duration: 30 day, Stop date : 07/09/17 8:25:00 CDT, PRN Line Flush Start Date: 06/09/17 Stop Date: 06/12/17 Status: Discontinuedterbutaline 0.25 mg, 0.25 mL, Route: SUB-Q, Drug form: INJ, ONCALL, Dosing Weight 81.818, kg , PRN Other -See Comment, Start date: 06/08/17 19:46:00 CDT, Duration: 1 doses or times, Stop date: 07/09/17 0:00:00 CDT Notes: DO NOT USE IN CAUSTIC PREPARER AREA(Same As: Jazlyn) Start Date: 06/08/17 Stop Date: 06/09/17 Status: Discontinuedtetanus/diphth/pertussis (Tdap) adult/adol 5 units-2 units- 15.5 mcg/0.5 mL intramuscular suspension 0.5 mL, Route: IM, Drug Form: SUSP, Dosing Weight 81.818, kg, ONCALL, Start date : 06/08/17 23:00:00 CDT, Duration: 1 doses or times, Stop date: 07/09/17 0:00: 00 CDT Notes: (Tdap ) For Adolecent and Adult use For IM Use. Same as: Adacel (Tdap) Start Date: 06/08/17 Stop Date: 06/12/17 Status: Discontinuedtramadol 100 mg, 2 tab, Route: PO, Drug form: TAB, Q6H, Dosing Weight 81.818, kg, PRN Pain Score 7-10, Start date: 06/08/17 22:52:00 CDT, Duration: 30 day, Stop date : 07/08/17 22:51:00 CDT Notes: Not to exceed 400mg/day. (Same As: Ultram) Start Date: 06/08/17 Stop Date: 06/12/17 Status: Discontinuedtramadol 50 mg, 1 tab, Route: PO, Drug form: TAB, Q4H, Dosing Weight 81.818, kg, PRN Pain Score 4-6, Start date: 06/08/17 22:52:00 CDT, Duration: 30 day, Stop date: 07/08/17 22:51:00 CDT Notes: Not to exceed 400mg/day. (Same As: Ultram) Start Date: 06/08/17 Stop Date: 06/12/17 Status: DiscontinuedTylenol with Codeine #3 oral tablet 2 tab, PO, Q4H, PRN Pain Score 4-6, X 3 day, # 24 tab, 0 Refill(s) Start Date: 06/12/17 Stop Date: 06/15/17 Status: OrderedTylenol with Codeine #3 oral tablet 2 tab, Route: PO, Drug Form: TAB, Dosing Weight 81.818, kg, Q4H, PRN Pain Score 4-6, Start date: 06/10/17 8:27:00 CDT, Duration: 30 day, Stop date: 07/10/17 8: 26:00 CDT Notes: Do not exceed 4gm/day of acetaminophen. (Same as: Tylenol with Codeine # 3) Start Date: 06/10/17 Stop Date: 06/12/17 Status: Discontinuedzolpidem 5 mg, 1 tab, Route: PO, Drug form: TAB, Bedtime, Dosing Weight 81.818, kg, PRN Insomnia, Start date:06/08/17 22:52:00 CDT, Duration: 30 day, Stop date: 22:51:00 CDT Notes: (Same As: Connor) Start Date: 06/08/17 Stop Date: 06/12/17 Status: Discontinued Results BLOOD BANK RESULTS Most recent to oldest [Reference Range]: 1 2 ABO/Rh A POS *Unknown* (06/08/17 7:53 PM) Antibody Scrn Negative (06/08/17 7:53 PM) Rhig Reqd See Note 1 (06/08/17 7:53 PM) 1Result Comment: 06/08/2017 22:11 [id number] This patient is not a candidate for Rh(O)D immune globulin.CHEM PANEL Most recent to oldest [Reference Range]: 1 2 Creatinine Lvl [0.50-1.40 mg/dL] 0.48 mg/dL *LOW* (06/08/17 7:53 PM) eGFR 137 mL/min/1.73m2 1 *NA* (06/08/17 7:53 PM) ALT [0-65 unit/L] 23 unit/L (06/08/17 7:53 PM) AST [0-37 unit/L] 22 unit/L (06/08/17 7:53 PM) 1Result Comment: The eGFR is calculated using the CKD-EPI formula. In most young , healthy individualsthe eGFR will be >90 mL/min/1.73m2. The eGFR declines with age. An eGFR of 60-89 may be normal in some populations, particularly the elderly, for whom the CKD-EPI formula has not been extensively validated. Use of the eGFR is not recommended in the following populations: Individuals with unstable creatinine concentrations, including patients and those with serious co-morbid conditions. Patients with extremes in muscle mass or diet. The data above are obtained from the National Kidney Disease Education Program ( NKDEP) which additionally recommends that when the eGFR is used in patients with extremes of body mass index for purposesof drug dosing, the eGFR should be multiplied by the estimated BMI.DRUG SCREEN Most recent to oldest [Reference Range]: 1 2 U Amph Scr [Negative] Negative *NA* (06/08/17 7:53 PM) U Rita Scr [Negative] Negative *NA* (06/08/17 7:53 PM) U Benzodia Scr [Negative] Negative *NA* (06/08/17 7:53 PM) U Cocaine Scr [Negative] Negative *NA* (06/08/17 7:53 PM) U Opiate Scr [Negative] Negative *NA* (06/08/17 7:53 PM) U Phencyc Scr [Negative] Negative *NA* (06/08/17 7:53 PM) U Cannab Scr [Negative] Negative *NA* (06/08/17 7:53 PM) UDS Note See Note *NA* (06/08/17 7:53 PM) URINE CHEM Most recent to oldest [Reference Range]: 1 2 U Creatinine 55.90 mg/dL *NA* (06/08/17 7:53 PM) U Protein 21.8 mg/dL *NA* (06/08/17 7:53 PM) U Prot/Creat 0.4 *NA* (06/08/17 7:53 PM) IMMUNOLOGY Most recent to oldest [Reference Range]: 1 2 Treponemal Scr [Non Reactive] Non Reactive *NA* (06/08/17 7:53 PM) HIV. [Negative] Negative *NA* (06/08/17 7:53 PM) Rubella IgG [>=10.0 IU/mL] 42.7 IU/mL (06/09/17 7:31 AM) Hep Bs Ag [Negative] Negative *NA* (06/08/17 7:53 PM) HEMATOLOGY Most recent to oldest [Reference Range]: 1 2 WBC [3.7-10.4 K/CMM] 10.1 K/CMM (06/08/17 7:53 PM) RBC [4.20-5.40 M/CMM] 3.96 M/CMM *LOW* (06/08/17 7:53 PM) Hgb [12.0-16.0 g/dL] 10.8 g/dL 10.4 g/dL *LOW* *LOW* (06/09/17 7:31 AM) (06/08/17 7:53 PM) Hct [36.0-48.0 %] 32.7 % 31.5 % *LOW* *LOW* (06/09/17 7:31 AM) (06/08/17 7:53 PM) MCV [80.0-98.0 fL] 79.6 fL *LOW* (06/08/17 7:53 PM) MCH [27.0-31.0 pg] 26.3 pg *LOW* (06/08/17 7:53 PM) MCHC [32.0-36.0 g/dL] 33.1 g/dL (06/08/17 7:53 PM) RDW [11.5-14.5 %] 15.0 % *HI* (06/08/17 7:53 PM) Platelet [133-450 K/CMM] 188 K/CMM (06/08/17 7:53 PM) MPV [7.4-10.4 fL] 7.5 fL (06/08/17 7:53 PM) Segs [45.0-75.0 %] 75.6 % *HI* (06/08/17 7:53 PM) Lymphocytes [20.0-40.0 %] 17.7 % *LOW* (06/08/17 7:53 PM) Monocytes [2.0-12.0 %] 5.6 % (06/08/17 7:53 PM) Eosinophils [0.0-4.0 %] 0.8 % (06/08/17 7:53 PM) Basophils [0.0-1.0 %] 0.3 % (06/08/17 7:53 PM) Segs-Bands # [1.5-8.1 K/CMM] 7.6 K/CMM (06/08/17 7:53 PM) Lymphocytes # [1.0-5.5 K/CMM] 1.8 K/CMM (06/08/17 7:53 PM) Monocytes # [0.0-0.8 K/CMM] 0.6 K/CMM (06/08/17 7:53 PM) Eosinophils # [0.0-0.5 K/CMM] 0.1 K/CMM (06/08/17 7:53 PM) Immunizations No data available for this section Procedures Procedure Date Related Diagnosis Body Site section Social History Social History Type Response Smoking Status Former smoker; Exposure to Tobacco Smoke None; Cigarette Smoking Last 365 Days No; Reg Smoking Cessation Counseling No Assessment and Plan Extracted from: Title: OB Progress Note Author: Moraima Jauregui MD Date: 06/12 Impression and Plan Labs: A Positive / Negative RPR NR HepBsAg Negative HIV Negative A/P: 27 yo G4 now 2021 s/p repeat LTCS 1) POD#4. AFVSS. Pt meeting post-op milestones. Hgb stable. 2) PreE w/o SF- BPs currently normotensive. PreE panel wnl, UPCR 0.4. No symptoms. 3) PNL: RH+, rubella immune, HIV neg, HepB neg, trep screen neg 4) Esequiel/ BCM- MPDPS, desires interval tubal 5) Outside PNC- UDS neg. Glucose wnl. Dispo: Discharge home today as meeting post-op milestones and doing well. Moraima Jauregui, PGY-4 Extracted from: Title: Clinical Document Author: Lety Ayala DO Date: 06/08/17 OB ED Evaluation Patient: KIRAN MURCIA Age: 27 years Sex: Female : 1990 Associated Diagnoses: None Author: Fred Painter MD Basic Information Additional information: Chief Complaint from Nursing Triage Note : Chief Complaint 06/08/2017 18:59 Chief Complaint Chief Complaint . History of Present Illness LMP: 09/2016 EDC: 06/24/17 EGA: 37w5d CC: CTX HPI: Pt is a 27 yo at 37w5d by reported EDC, prior C/Sx1, who presents to OB ED complaining of CTX worsening throughout day today. Currently Q3-5 min. Denies LOF, VB. +FM. PNC: Dr. Guerra in [place], [place]. Presented here as [place]e from [place]. 1. Dated as above 2. Prior C/Sx1- Undocumented scar at term 2/2 NRFHTs, AOAP. Desires repeat CS. 3. PNLs: wnl per pt 4. US: wnl per pt 5. Esequiel/BCM MPDPS OBHx: 07/2016- Primary C/S, male, 9#, [facility], no comps SABx2 GYNHx: [id number]/R/3-4d Denies STDs Reports abnl pap this . Reports having bx, does not know result. PMH: Denies Meds: PNV All: Cipro, macrobid, naproxen PSH: C/Sx1 SHx: Negx3 FHx: Breast cancer Review of Systems Constitutional symptoms: Negative except as documented in HPI. Skin symptoms: Negative except as documented in HPI. Eye symptoms: Negative except as documented in HPI. Respiratory symptoms: Negative except as documented in HPI. Cardiovascular symptoms: Negative except as documented in HPI. Gastrointestinal symptoms: Negative except as documented in HPI. Genitourinary symptoms: Negative except as documented in HPI. Musculoskeletal symptoms: Negative except as documented in HPI. Neurologic symptoms: Negative except as documented in HPI. Psychiatric symptoms: Negative except as documented in HPI. Endocrine symptoms: Negative except as documented in HPI. Hematologic/Lymphatic symptoms: Negative except as documented in HPI. Allergy/immunologic symptoms: Negative except as documented in HPI. Physical Examination Vital Signs ED-Vital Signs 06/08/2017 18:59 Temperature Oral 97.5 DegF Normal Peripheral Pulse Rate 84 bpm Normal Respiratory Rate 17 BRMIN Normal SpO2 percent 100 % Normal Systolic Blood Pressure 118 mmHg Normal Diastolic Blood Pressure 72 mmHg Normal . General: Alert, no acute distress. Cardiovascular: Regular rate and rhythm. Respiratory: Respirations are non-labored. Gastrointestinal: Soft, Gravid. Genitourinary: SVE- ft/th/hi. Medical Decision Making Heart Rate Electronic Monitor baseline 150, Variability Moderate , Accelerations Present, Decelerations Absent. [place]: CTX Q3 min Procedure BSUS: Cephalic, Anterior fundal placenta, DVP 5 cm, EFW 3316g Impression and Plan Pt is a 27 yo at 37w5d by reported EDC c/w BSUS today, prior C/Sx1, who presents to OB ED for contractions, foudn to have elevated BP 1. Contractions- Ctx Q3-4 min, cvx ft/th/hi. Not in labor however mild range BPs on arrival. Desires repeat LTCS, declines TOLAC. Will keep for delivery given elevated BP at term. Discussed with patient risks of procedure including bleeding with potential need for transfusion or potential need for hysterectomy to control bleeding, infection, damage to surrounding structures such as bowel/bladder/nerve /arteries/baby, pain. Patient understands these risks and desires to proceed. 2. Elevated BP- GHTN v preE without SF. Denies symptoms preE. PreE panel pending. 3. Outside PNC- Accucheck wnl. UDS ordered. 4. FHTs cat I 4. GBS unk no RF/HIV pending 5. Cephalic, 3316g by US 6. MPDPS- Does not have valid consents, cannot perform. D/w Dr. Lucy Painter MD PGY4
--- OUTSIDE RECORDS SUMMARY | 2018-05-05 06:22 | XMS REPORT | Summary of Care ---
:1990 Author Encounter WILLIAM Barillas(PILAR) [id number] Date(s): 02/10/14 - 02/10/14 [facility] [id number] Discharge Disposition: Elopement Physician Attending: Bina Peguero MD Reason for Visit PREG/BLEEDING Vital Signs Most recent to oldest [Reference Range]: 1 Height 157.48 cm (02/10/14 1:44 PM) Temperature Oral [96.4-99.1 DegF] 98.5 DegF (02/10/14 1:44 PM) Systolic Blood Pressure [90-140 mmHg] 123 mmHg (02/10/14 1:44 PM) Diastolic Blood Pressure [60-90 mmHg] 79 mmHg (02/10/14 1:44 PM) Respiratory Rate [14-20 BRMIN] 18 BRMIN (02/10/14 1:44 PM) Peripheral Pulse Rate [60-100 bpm] 95 bpm (02/10/14 1:44 PM) Weight 55.909 kg (02/10/14 1:44 PM) Body Mass Index 22.54 m2 (02/10/14 1:44 PM) Problem List No data available for this section Allergies, Adverse Reactions, Alerts Substance Reaction Severity Status naproxen Active NKDA Active Medications No data available for this section Results URINE CHEM Most recent to oldest [Reference Range]: 1 U Preg [Negative] Positive *ABN* (02/10/14 3:09 PM) URINE AND STOOL Most recent to oldest [Reference Range]: 1 UA Turbidity [Clear] Cloudy *ABN* (02/10/14 3:09 PM) UA Color [Yellow] Yellow *NA* (02/10/14 3:09 PM) UA pH [5.0-8.0] 8.0 (02/10/14 3:09 PM) UA Spec Grav [<=1.030] 1.015 (02/10/14 3:09 PM) UA Glucose [Negative] Negative (02/10/14 3:09 PM) UA Blood [Negative] Large *ABN* (02/10/14 3:09 PM) UA Ketones [Negative] Negative *NA* (02/10/14 3:09 PM) UA Protein [Negative] Trace *ABN* (02/10/14 3:09 PM) UA Urobilinogen [0.1-1.0 EU/dL] 0.2 EU/dL (02/10/14 3:09 PM) UA Bili [Negative] Negative *NA* (02/10/14 3:09 PM) UA Leuk Est [Negative] Small *ABN* (02/10/14 3:09 PM) UA Nitrite [Negative] Positive *ABN* (02/10/14 3:09 PM) UA WBC [None Seen /HPF] 3-5 /HPF (02/10/14 3:09 PM) UA RBC [0-2 /HPF] 0-2 /HPF (02/10/14 3:09 PM) UA Bacteria [None Seen /HPF] Many /HPF (02/10/14 3:09 PM) UA Sq Epi [Few /LPF] Many /LPF *ABN* (02/10/14 3:09 PM) Medications Administered During Your Visit No data available for this section Immunizations No data available for this section
--- NOTE | 2018-05-05 06:56 | EDPHYS ---
Physician Documentation [facility] Name: Lucila Quiroga Age: 27 yrs Sex: Female : 1990 Arrival Date: 05/05/2018 Time: 06:19 Bed 6 Private MD: ED Physician Diony Lino HPI: 05/05 06:46 This 27 yrs old Female presents to ER via Ambulatory with complaints of gs Toothache. 06:46 The patient presents with broken tooth/teeth. The problem is located in the upper right gs third molar and lower right third molar. Onset: The symptoms/episode began/occurred 1 year(s) ago, and became persistent. Duration: The symptoms are continuous. Modifying factors: the symptoms are aggravated by chewing, cold fluids. Associated signs and symptoms: Pertinent negatives: dysphagia, fever, swelling, mandibular, vomiting. Severity of symptoms: At their worst the symptoms were moderate, in the emergency department the symptoms are unchanged. The patient has experienced similar episodes in the past, a few times. The patient has not recently seen a physician, has an appointment scheduled, in 7 day(s). 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 - Social history:: Smoking status: Patient/guardian denies using tobacco. - Ebola Screening: : No symptoms or risks identified at this time. ROS: 06:46 All other systems are negative. gs Exam: 06:46 Head/Face: Normocephalic, atraumatic. Eyes: Pupils equal round and reactive to light, gs extra-ocular motions intact. Lids and lashes normal. Conjunctiva and sclera are non-icteric and not injected. Cornea within normal limits. Periorbital areas with no swelling, redness, or edema. Neck: Trachea midline, no thyromegaly or masses palpated, and no cervical lymphadenopathy. Supple, full range of motion without nuchal rigidity, or vertebral point tenderness. No Meningismus. Chest/axilla: Normal chest wall appearance and motion. Nontender with no deformity. No lesions are appreciated. Cardiovascular: Regular rate and rhythm with a normal S1 and S2. No gallops, murmurs, or rubs. Normal PMI, no JVD. No pulse deficits. Respiratory: Lungs have equal breath sounds bilaterally, clear to auscultation and percussion. No rales, rhonchi or wheezes noted. No increased work of breathing, no retractions or nasal flaring. Abdomen/GI: Soft, non-tender, with normal bowel sounds. No distension or tympany. No guarding or rebound. No evidence of tenderness throughout. Back: No spinal tenderness. No costovertebral tenderness. Full range of motion. Skin: Warm, dry with normal turgor. Normal color with no rashes, no lesions, and no evidence of cellulitis. MS/ Extremity: Pulses equal, no cyanosis. Neurovascular intact. Full, normal range of motion. Neuro: Awake and alert, GCS 15, oriented to person, place, time, and situation. Cranial nerves II-XII grossly intact. Motor strength 5/5 in all extremities. Sensory grossly intact. Cerebellar exam normal. Normal gait. 06:46 Constitutional: The patient appears alert, awake, uncomfortable. 06:46 ENT: Dental exam: abscess, is not appreciated, cellulitis, is not appreciated, dental caries, diffusely, fractured teeth are noted, specifically the upper right third molar (#1), lower left third molar (#17) and lower right third molar (#32), gum swelling, not appreciated. Vital Signs: 06:28 BP 117 / 74; Pulse 89; Resp 19 S; Temp 97.7(TE); Pulse Ox 98% on R/A; Weight 54.43 kg ea (M); Height 5 ft. 2 in. (157.48 cm); Pain 10/10; 06:28 Body Mass Index 21.95 (54.43 kg, 157.48 cm) ea MDM: 06:30 Patient medically screened. 06:46 Differential diagnosis: dental caries, pericoronitis, pulpitis. Data reviewed: vital gs signs, nurses notes. ED course: discussed need for dentist no acute infection noted bad caries and tooth fractures, hesitant to give extended amounts of opiates informed her this was chronic problem chronic pain and should use anti inflammatories says can take ibuprofen and see a dentist jaspreet. 06:56 ED course: pt upset would not rx narcotics. gs Administered Medications: No medications were administered Disposition: 06:56 dental caries, dental fractures. gs Disposition: 05/05/18 06:56 Discharged to Home. Impression: Encounter for screening, unspecified. - Condition is Stable. - Medication Reconciliation Form, Thank You Letter, Antibiotic Education, Prescription Opioid Use form. - Follow up: Private Physician; When: 2 - 3 days; Reason: Re-evaluation by your physician. Signatures: Pippa Crow RN RN Diony Valera MD MD gs Corrections: (The following items were deleted from the chart) 06:56 06:56 05/05/2018 06:56 Discharged to Home. Impression: Encounter for screening, ea unspecified. Condition is Stable. Forms are Medication Reconciliation Form, Thank You Letter, Antibiotic Education, Prescription Opioid Use. Follow up: Private Physician; When: 2 - 3 days; Reason: Re-evaluation by your physician. gs
--- NOTE | 2018-05-05 06:56 | ER ---
Nurse's Notes [facility] Name: Lucila Quiroga Age: 27 yrs Sex: Female : 1990 Arrival Date: 05/05/2018 Time: 06:19 Bed 6 Private MD: Diagnosis: Encounter for screening, unspecified Presentation: 05/05 06:28 Presenting complaint: Patient states: Pt reports she is having pain to upper and lower ea back teeth, pt reports headache and constant pain to area. Pt reports she takes ibuprofen and Tylenol for the pain without relief. Transition of care: patient was not received from another setting of care. Onset of symptoms was May 05, 2018. Risk Assessment: Do you want to hurt yourself or someone else? Patient reports no desire to harm self or others. Initial Sepsis Screen: Does the patient meet any 2 criteria? No. Patient's initial sepsis screen is negative. Does the patient have a suspected source of infection? No. Patient's initial sepsis screen is negative. Care prior to arrival: None. 06:28 Method Of Arrival: Ambulatory ea 06:28 Acuity: COLEMAN 4 ea Triage Assessment: 06:33 General: Appears in no apparent distress. Behavior is calm, cooperative, appropriate ea for age. Pain: Complains of pain in upper right third molar, upper right second molar, lower right second molar, lower right third molar, right temporal area, right ear, right methodist, right zygomatic area, right cheek and right mandible Pain radiates to right side of head Pain currently is 10 out of 10 on a pain scale. Quality of pain is described as sharp, shooting, throbbing, Pain began 4 hours ago. Is continuous. EENT: Reports pain in upper right third molar, upper right second molar, upper right first molar, lower right first molar, lower right second molar and lower right third molar Pain is 10 out of 10 on a pain scale. Neuro: Level of Consciousness is awake, alert, obeys commands, Oriented to person, place, time, situation. Cardiovascular: Patient's skin is warm and dry. Respiratory: Airway is patent Respiratory effort is even, unlabored, Respiratory pattern is regular, symmetrical. GI: No signs and/or symptoms were reported involving the gastrointestinal system. : No signs and/or symptoms were reported regarding the genitourinary system. Derm: Skin is pink, warm \T\ dry. Musculoskeletal: Circulation, motion, and sensation intact. 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 - Social history:: Smoking status: Patient/guardian denies using tobacco. - Ebola Screening: : No symptoms or risks identified at this time. Screenin:37 Abuse screen: Denies threats or abuse. Nutritional screening: No deficits noted. ea Tuberculosis screening: No symptoms or risk factors identified. Fall Risk None identified. Assessment: 06:28 Reassessment: see triage assessment. ea Vital Signs: 06:28 BP 117 / 74; Pulse 89; Resp 19 S; Temp 97.7(TE); Pulse Ox 98% on R/A; Weight 54.43 kg ea (M); Height 5 ft. 2 in. (157.48 cm); Pain 10/10; 06:28 Body Mass Index 21.95 (54.43 kg, 157.48 cm) ea ED Course: 06:19 Patient arrived in ED. ds1 06:19 Diony Lino MD is Attending Physician. 06:28 Pippa Crow RN is Primary Nurse. ea 06:28 Patient has correct armband on for positive identification. Bed in low position. Call ea light in reach. Side rails up X 1. 06:28 Arm band placed on right wrist. Patient placed in an exam room, on a stretcher, on ea pulse oximetry. 06:32 Triage completed. ea 06:54 No provider procedures requiring assistance completed. Patient did not have IV access ea during this emergency room visit. Administered Medications: No medications were administered Outcome: 06:54 Medical screen evaluation completed per provider. Patient declined treatment. ea 06:56 Discharge ordered by . 06:56 Patient left the ED. ea Signatures: CaiLisa tam ds1 Pippa Crow RN RN ea Starr, Gregory, MD MD
== END 2018-05-05 06:56 | disposition home or self-care (01) ==
LOC: ER 06:18
DX: K02.9 Dental caries, unspecified (principal); S02.5XXA Fracture of tooth (traumatic), initial encounter for closed fracture; X58.XXXA Exposure to other specified factors, initial encounter; Y93.9 Activity, unspecified; Y92.9 Unspecified place or not applicable; Y99.9 Unspecified external cause status; Z88.3 Allergy status to other anti-infective agents; Z88.8 Allergy status to other drugs, medicaments and biological substances; Z88.1 Allergy status to other antibiotic agents
CPT/HCPCS: 99282

== ENCOUNTER 2021-02-12 12:58 | Emergency (ER) | payer SELFPAY ==
--- OUTSIDE RECORDS SUMMARY | 2021-02-12 13:02 | XMS REPORT | Continuity of Care Document ---
:1990 Author Organization [facility] t Address [address] [place] [address] Care Team Providers Name Role Phone Asked, Pcp Primary Care Physician Unavailable Ravi DONALDSON S Attending Clinician Tamika Mason Attending Clinician Megan Ayala Attending Clinician Marielena Attending Clinician Megan Ayala Admitting Clinician Problems Condition Condition Condition Status Onset Resolution Last Treating Co mments Source Name Details Category Date Date Treatment Clinician Date 39 WKS Diagnosis Active 2017-06-08 Mem oria PREG 06-08 20:03:00 l CONTRACTIO 39 WKS 00:00: Herm vikki NS PREG 00 CONTRACTIO NS Active 7 [facility] Diagnosis Active 2017-06-08 M emoria DELIVERY 06-08 22:06:00 l 00:00: Bashir n DELIVERY 00 Active 06/08/2017 [facility] PREG/BLEED Diagnosis Active 2014-02-10 Memoria ING 02-10 16:03:00 l 13:00: Isaac PREG/BLEED 00 ING Active 02/10/2014 [facility] OTHER Diagnosis Active 2010-102011-08-22 Mem oria 10-22 10:49:00 l OTHER 05:00: [place] 00 Active 08/22/2011 [facility] BITE Diagnosis Active 2010-102011-08-19 Mem oria 10-17 17:20:00 l BITE 00:00: [place] 00 Active 08/17/2011 [facility] Diagnosis Active 2017-06-08 Memoria RELATED 22:06:00 l CONDITIONS Bashir n , UNSP, UNSP RELATED CONDITIONS , UNSP, UNSP Active [facility] Patient Problem Resolve 2010-102017-06-15 2017-06-15 Memoria currently d 11-02 00:47:40 00:47:40 l Patient 00:00: Annabella nn (finding) currently 00 (finding) Resolved 09/02/2011 Problem 06/15/2017 [facility] [place] Allergies, Adverse Reactions, Alerts Allergy Allergy Status Severity Reaction(s) Onset Inactive Treating Comm ents Source Name Type Date Date Clinician Ej Propensi Active [place] xacin ty to 05-09 Methodi adverse 00:00: st reaction 00 s to drug Nitrofur Propensi Active [place] antoin ty to 05-09 Methodi Monohyd/ adverse 00:00: st M-Cryst reaction 00 s to drug Naproxen Propensi Active Itching, [place] ty to Swelling 05-08 Methodi adverse 00:00: st reaction 00 s to drug ciproflo ciproflo Active Memori a xacin xacin l [place] Macrobid Macrobid Active Memori a l [place] naproxen naproxen Active Memori a l [place] Social History Social Habit Start Date Stop Date Quantity Comments Source Tobacco use and 2018-05-09 2018-05-09 Never used Mo Lemus ethodist exposure 00:00:00 00:00:00 [birth year] Mo Lemus ethodist 00:00:00 00:00:00 Smoking Status Start Date Stop Date Source Never smoker Mo kaplan Social History 2017-06-09 01:14:49 2017-06-09 01:14:49 [facility] Isaac Medications Ordered Filled Start Stop Current Ordering Indication Dosage Frequency Signature Comments Components Source Medication Medication Date Date Medication? Clinician (SIG) Name Name ibuprofen Yes 600 mg = 1 Me moria 600 mg oral 8-30 tab, PO, l tablet 11:49: Q6H, X 3 Isaac 00 day, # 12 tab, 0 Refill(s) Acetaminoph Yes 2 tab, PO, Memoria en 300 MG / 8-30 Q4H, PRN l Codeine 11:49: Pain Score Herm vikki Phosphate 00 4-6, X 3 30 MG Oral day, # 24 Tablet tab, 0 [Tylenol Refill(s) with Codeine #3] Docusate Yes 100 mg = 1 Mem oria Sodium 100 8-30 cap, PO, l MG Oral 11:49: BID, PRN Bashir n Capsule 00 Constipati on, # 42 cap, 0 Refill(s) Acetaminoph No Notes: Do M emoria en 300 MG / 06-10 not exceed l Codeine 13:27: 4gm/day of Herm vikki Phosphate acetaminop 30 MG Oral hen. Tablet (Same as: [Tylenol Tylenol with with Codeine #3] Codeine # 3) Saline No Notes: Memoria Flush 0.9% 06-09 (Same as: l 14:00: BD Posiflush) No 1 tab, Memoria Multivitami 06-09 Route: PO, l ns oral 14:00: Drug Form: Herm vikki tablet 00 TAB, Dosing Weight 81.818, kg, Daily, Start date: 06/09/17 9:00:00 CDT, Duration: 30 day, Stop date: 07/08/17 9:00:00 CDT Sodium No 25 mL, Memoria Chloride 06-09 Route: IV, l 0.9% IV 13:26: Start [place] 00 date: 06/09/17 8:26:00 CDT, Duration: 30 day, Stop date: 07/09/17 8:25:00 CDT, PRN Line Flush BD Normal No Notes: Memori a Saline 06-09 (Same as: l Flush 13:26: BD Posiflush) Hydromorpho No Notes: Margarito giovany ne 06-09 Same as l 13:23: Dilaudid Ibuprofen No Notes: Memori a 06-09 (Same as: l 05:00: Motrin) "Do Not Crush" Take with food. Naloxone No Notes: Memoria 06-09 Same as l 04:00: Narcan 0.5 ML No Notes: Memoria Bordetella 06-09 (Tdap ) l pertussis 04:00: For Isaac Adolecent hemagglutin and Adult in vaccine, use For IM inactivated Use. Same 0.01 MG/ML as: Adacel / (Tdap) Bordetella pertussis fimbriae 2/3 vaccine, inactivated 0.01 MG/ML / Bordetella pertussis pertactin vaccine, inactivated 0.006 MG/ML / Bordetella pertussis toxoid vacci M-M-R II No Notes: Memoria 06-09 (Same as: l 04:00: -M-R II) (measles-m umps-rubel la virus vaccine 0.5 ml INJ VL) WASTE: F/P - Red; E -Red GIVE PRIOR TO DISCHARGE fentaNYL No Route: IV, Mem oria (ANES) 06-09 Drug form: l 03:53: INJ, ONCE, Stop date: 06/08/17 22:53:00 CDT Pitocin No Route: IV, Margarito giovany (ANES) 06-09 Drug form: l 03:52: SOLN, ONCE, Stop date: 06/08/17 22:52:00 CDT Tramadol No Notes: Not Mem oria 06-09 to exceed l 03:52: 400mg/day. (Same As: Ultram) Saline No Notes: Memoria Flush 0.9% 06-09 (Same as: l 03:52: BD Posiflush) Simethicone No Notes: Margarito giovany 06-09 (Same as: l 03:52: Mylicon) zolpidem No Notes: Memoria 06-09 (Same As: l 03:52: Ambien) lanolin No Notes: Memoria topical 06-09 (Same l cream 03:52: as:Lanolin ) Acetaminoph No Notes: Do M emoria en 06-09 not exceed l 03:52: 4 gm/day. Isaac 00 (Same as: Tylenol) Bisacodyl No Notes: Memori a 06-09 (Same As: l 03:52: Dulcolax, Correctol) (Do Not Crush) "Do Not Crush" Docusate No Notes: Memoria 06-09 (Same as: l 03:52: Colace) (Do Not Crush) Lactated No 1,000 mL, Margarito giovany Ringers 06-09 Rate: 100 l 1,000 mL 03:52: ml/hr, Infuse over: 10 hr, Route: IV, Dosing Weight 81.818 kg, Total Volume: 1,000, Start date: 06/08/17 22:52:00 CDT, Duration: 30 day, Stop date: 07/08/17 22:51:00 CDT Oxytocin No 30 unit, Memor ia 06-09 500 mL, l 03:52: Rate: 42 Isaac 00 ml/hr, Infuse over: 11.9 hr, Dosing Weight 81.818, kg, Route: IV, Total Volume: 500 mL, Start date: 06/08/17 22:52:00 CDT, Duration: 2 day, Stop date: 06/10/17 22:51:00 CDT, Replace Every: 11.9 hr dexamethaso No Route: IV, Memoria ne (ANES) 06-09 Drug form: l 03:42: INJ, ONCE, Stop date: 06/08/17 22:42:00 CDT bupivacaine No Route: Margarito giovany (ANES) 06-09 INTRATHECA l 03:32: L, Drug Form: INJ, ONCE, Stop date: 06/08/17 22:32:00 CDT phenylephri No Route: IV, Memoria ne (ANES) 06-09 Drug form: l 03:32: INJ, ONCE, Stop date: 06/08/17 22:32:00 CDT ePHEDrine No Route: IV, Me moria (ANES) 06-09 Drug form: l 03:32: INJ, ONCE, Stop date: 06/08/17 22:32:00 CDT morphine No Route: IV, Mem oria Sulfate 06-09 Drug form: l (ANES) 03:32: SOLN, [place] ONCE, Stop date: 06/08/17 22:32:00 CDT acetaminoph No Route: IV, Memoria en (ANES) 06-09 Drug form: l (ANES) 03:31: INJ, Start Annabella date: 06/08/17 22:31:00 CDT, Stop date: 06/08/17 23:31:00 CDT metoclopram No Route: IV, Memoria leslie (ANES) 06-09 Drug form: l 03:22: INJ, ONCE, Stop date: 06/08/17 22:22:00 CDT ondansetron No Route: IV, Memoria (ANES) 06-09 Drug form: l 03:22: INJ, ONCE, Stop date: 06/08/17 22:22:00 CDT oxytocin No Route: IV, Mem oria (ANES) 06-09 Drug form: l (ANES) 03:18: SOLN, Isaac 00 Start date: 06/08/17 22:18:00 CDT, Stop date: 06/08/17 23:18:00 CDT Ondansetron No Notes: Margarito giovany 06-09 (Same as: l 03:05: Zofran) MEDICATION WASTE Product Size: 4 mg Product Wasted: ___ mg Acetaminoph No Notes: Margarito giovany en 06-09 Infuse l 03:05: over 15 minutes Do not exceed 4gm/day of acetaminop hen MEDICATION WASTE Product Size: 1000 mg Product Wasted: ___ mg Diphenhydra No Notes: Margarito giovany mine 06-09 (Same as: l 03:05: Benadryl) Naloxone No Notes: Memoria 06-09 Same as l 03:05: Narcan Periactin No Notes: Memori a 06-09 (Same As: l 03:04: Periactin) Diphenhydra No Notes: Margarito giovany mine 06-09 (Same as: l 03:04: Benadryl) Ondansetron No Notes: Margarito giovany 06-09 (Same as: l 03:04: Zofran) MEDICATION WASTE Product Size: 4 mg Product Wasted: ___ mg Acetaminoph No Notes: Max Memoria en 06-09 acetaminop l 03:04: hen 4000 [place] mg/day (4 gm/day). (Same as: Tylenol Extra Strength) Oxycodone No Notes: Memori a Hydrochlori 06-09 (Same as: l de 5 MG 03:04: Roxicodone Herm vikki Oral Tablet ) ceFAZolin No Route: IV, Me moria (ANES) 06-09 Drug form: l (ANES) 02:47: INJ, Start Annabella nn date: 06/08/17 21:47:00 CDT, Stop date: 06/08/17 22:47:00 CDT LR 1000 mL No Route: IV, M emoria INJ (ANES) 06-09 Total l 02:47: Volume: [place] 00 1,000, Start date: 06/08/17 21:47:00 CDT, Stop date: 06/08/17 22:47:00 CDT Cefazolin No Notes: Memori a 06-09 Same as: l 01:00: Ancef Misoprostol No Notes: Margarito giovany 06-09 (Same l 01:00: as:Cytotec ) Take with food Methylergon No Notes: Margarito giovany ovine 06-09 (Same l 01:00: as:Metherg ine) Carboprost No Notes: Memor ia 06-09 (Same As: l 01:00: Hemabate) Terbutaline No Notes: Margarito giovany 06-09 DO NOT l 00:46: USE IN [place] [employer] (Same As: Brethine) Oxytocin No 30 unit, Memor ia 06-09 500 mL, l 00:46: Rate: 42 Isaac 00 ml/hr, Infuse over: 11.9 hr, Dosing Weight 81.818, kg, Route: IV, Total Volume: 500 mL, Start date: 06/08/17 19:46:00 CDT, Duration: 1 doses or times, Stop date: 06/09/17 7:39:00 CDT, Replace Every: 11.9 hr Metoclopram No Notes: Margarito giovany leslie - (Same as: l 00:46: Reglan) Ondansetron No Notes: Margarito giovany - (Same as: l 00:46: Zofran) MEDICATION WASTE Product Size: 4 mg Product Wasted: ___ mg Morphine No 2 mg, 1 Memori a - mL, Route: l 00:46: IVP, Drug form: SOLN, Q2H, Dosing Weight 81.818, kg, PRN Pain Score 7-10, Start date: 06/08/17 19:46:00 CDT, Duration: 30 day, Stop date: 07/08/17 19:45:00 CDT Citric Acid No Notes: Margarito giovany / sodium 06-09 (Same As: l citrate 00:46: BicBashir horton n 00 Cytra-2) Sodium citrate-ci tric acid (500-334 mg/5 mL): 1 mL contains sodium 1 mEq/mL and bicarbonat e 1 mEq/mL Calcium No 1,000 mL, Memor ia Chloride 06-09 1,000 l 0.0014 00:46: ml/hr, [place] MEQ/ML / 00 Infuse Potassium Over: 1 Chloride hr, Route: 0.004 IV, 1,000, MEQ/ML / Drug form: Sodium INJ, ONCE, Chloride Dosing 0.103 Weight MEQ/ML / 81.818 kg, Sodium Start Lactate date: 0.028 06/08/17 MEQ/ML 19:46:00 Injectable CDT, Stop Solution date: 06/08/17 19:46:00 CDT [place] 5/325 2010- Yes Sharon Lemus 1 tab, PO, Memoria oral tablet 1- [place] Q6H, PRN, l 01:19: 20 tab, [place] 21 for pain, Substituti on Allowed, Maintenanc e, TAB Bactrim DS 2010-10 Yes Audra Kilgore 1 tab, PO, Memoria oral tablet - [place] BID, 20 l 01:19: tab, [place] 15 Substituti on Allowed, Maintenanc e [place] 5/325 2010-10 No Audra Kilgore 2 tab, Memoria oral tablet 10-19 Bravo Route: PO, l 23:52: Drug Form: Isaac 00 TAB, ONCE, Start date: 08/19/11 17:52:00, Stop date: 08/19/11 17:52:00 Vital Signs Vital Name Observation Time Observation Value Comments Source Temperature Oral (F) 2017-06-12 13:00:00 98 F [facility] [place] Heart Rate 2017-06-12 13:00:00 [facility] [place] Respitory Rate 2017-06-12 13:00:00 Memori al Isaac Systolic (mm Hg) 2017-06-12 13:00:00 Margarito rial [place] Diastolic (mm Hg) 2017-06-12 13:00:00 Mem orial [place] Heart Rate 2017-06-12 05:00:00 [facility] [place] Respitory Rate 2017-06-12 05:00:00 Memori al Isaac Systolic (mm Hg) 2017-06-12 05:00:00 Margarito rial Isaac Diastolic (mm Hg) 2017-06-12 05:00:00 Mem orial Isaac Temperature Oral (F) 2017-06-12 05:00:00 97.5 F [facility] [place] Systolic (mm Hg) 2017-06-11 21:55:00 Margarito rial [place] Diastolic (mm Hg) 2017-06-11 21:55:00 Mem orial Isaac Respitory Rate 2017-06-11 21:55:00 Memori al [place] Heart Rate 2017-06-11 21:55:00 [facility] [place] Temperature Oral (F) 2017-06-11 21:55:00 98.9 F [facility] [place] Weight 2017-06-09 00:28:00 [facility] [place] Height 2017-06-09 00:28:00 157.48 cm [facility] [place] BMI Calculated 2017-06-09 00:28:00 Memori al [place] Weight 2017-06-08 23:59:00 [facility] [place] BMI Calculated 2017-06-08 23:59:00 Memori al [place] Height 2017-06-08 23:59:00 157.48 cm [facility] [place] Weight 2014-02-10 18:44:00 [facility] [place] Height 2014-02-10 18:44:00 157.48 cm [facility] [place] BMI Calculated 2014-02-10 18:44:00 Memori al Isaac Temperature Oral (F) 2014-02-10 18:44:00 98.5 F [facility] [place] Heart Rate 2014-02-10 18:44:00 [facility] Isaac Respitory Rate 2014-02-10 18:44:00 Memori al Isaac Systolic (mm Hg) 2014-02-10 18:44:00 Margarito rial Isaac Diastolic (mm Hg) 2014-02-10 18:44:00 Mem orial [place] Height 2011-08-22 16:34:00 160.02 cm [facility] Isaac Weight 2011-08-22 16:34:00 [facility] [place] Temperature Oral (F) 2011-08-22 16:34:00 98.1 F [facility] [place] Heart Rate 2011-08-22 16:34:00 [facility] [place] Respitory Rate 2011-08-22 16:34:00 Memori al Isaac Systolic (mm Hg) 2011-08-22 16:34:00 Margarito rial Isaac Diastolic (mm Hg) 2011-08-22 16:34:00 Mem orial Isaac Weight 2011-08-19 20:51:00 [facility] [place] Height 2011-08-19 20:51:00 162.56 cm [facility] Isaac Temperature Oral (F) 2011-08-19 20:51:00 98.6 F [facility] [place] Respitory Rate 2011-08-19 20:51:00 Memori al Isaac Heart Rate 2011-08-19 20:51:00 [facility] Isaac Diastolic (mm Hg) 2011-08-19 20:51:00 Mem orial Isaac Systolic (mm Hg) 2011-08-19 20:51:00 Margarito rial Isaac Procedures Procedure Date / Time Performed Performing Clinician [facility] e section Ankit Bashir n Encounters Start End Encounter Admission Attending Care Care Encounter Source Date/Time Date/Time Type Type Clinicians Facility Department ID 2020-09-30 [facility] [id number] 19:30:00 19:53:00 Scarlett Phipps [id number] [place] [id number] [place] [id number] 2020-09-14 2020-09-14 Emergency Shabnam Myers [facility] [id number] 12:29:00 13:06:00 Tamika Phipps [id number] [place] [id number] [place] [id number] 2017-06-08 2017-06-12 [id number] 18:58:00 14:30:00 Lety Guzman 04 2014-02-10 2014-02-10 [id number] 13:25:00 15:45:00 Bina 03 Results Test Description Test Time Test Comments Results Result Comments Source HEMATOLOGY 2017-06-09 10.8 [facility] Annabella nn 12:31:00 HEMATOLOGY 2017-06-09 32.7 [facility] [place] nn 12:31:00 IMMUNOLOGY 2017-06-09 42.7 [facility] [place] nn 12:31:00 HEMATOLOGY 2017-06-09 0.6 [facility] [place] nn 00:53:00 HEMATOLOGY 2017-06-09 1.8 [facility] [place] nn 00:53:00 HEMATOLOGY 2017-06-09 7.6 [facility] [place] nn 00:53:00 HEMATOLOGY 2017-06-09 188 [facility] [place] nn 00:53:00 HEMATOLOGY 2017-06-09 7.5 [facility] [place] nn 00:53:00 HEMATOLOGY 2017-06-09 10.1 [facility] [place] nn 00:53:00 HEMATOLOGY 2017-06-09 3.96 [facility] [place] nn 00:53:00 HEMATOLOGY 2017-06-09 33.1 [facility] [place] nn 00:53:00 HEMATOLOGY 2017-06-09 15.0 [facility] [place] nn 00:53:00 HEMATOLOGY 2017-06-09 79.6 [facility] [place] nn 00:53:00 HEMATOLOGY 2017-06-09 31.5 [facility] [place] nn 00:53:00 HEMATOLOGY 2017-06-09 10.4 [facility] [place] nn 00:53:00 HEMATOLOGY 2017-06-09 00:53:00 Test Item Value Reference Range Interpretation Comme nts MCH (test code = MCH) 26.3 pg 27.0-31.0 Memorial [id number] 00:53:00Negative *NA*(06/08/17 7:53 PM) Memorial DbfecjrHBCNASLOVY9920-06-49 00:53:00Non Reactive *NA*(06/08/17 7:53 PM) [facility] LwssohwTRIGMKUBEB2381-61-42 00:53:00Negative *NA*(06/08/17 7:53 PM) [facility] [id number] 00:53:000.4[facility] CHEM 2017-06-09 00:53:0021.8[facility] [id number] 00:53:0055.90 [facility] [id number] 00:53:00Negative (06/08/17 7:53 PM) [facility] [id number] 00:53:00See Note 1(06/08/17 7:53 PM) [facility]annCHEM [id number] 00:53:07644Lszvgqvh HermannCHEM PANEL 2017-06-09 00:53:000.48[facility] HermannCHEM [id number] 00:53:0022[facility] HermannCHEM [id number] 00:53:0023[facility]annDRUG [id number] 00:53:00See Note *NA*(06/08/17 7:53 PM)[facility]ann[facility] [id number] 00:53:00Negative *NA*(06/08/17 7:53 PM)[facility]ann[facility] [id number] 00:53:00Negative *NA*(06/08/17 7:53 PM)[facility] [id number] 00:53:00Negative *NA*(06/08/17 7:53 PM)[facility]annDR[facility] [id number] 00:53:00Negative *NA*(06/08/17 7:53 PM)[facility]annDR[facility] [id number] 00:53:00Negative *NA*(06/08/17 7:53 PM)[facility] [id number] 00:53:00Negative *NA*(06/08/17 7:53 PM)[facility]annDR[facility] [id number] 00:53:00Negative *NA*(06/08/17 7:53 PM)[facility] NtfeeliLFWVWHZNGH2705-82-21 00:53:000.8[facility] GcheurvDVSVJJREJT3991-49-96 00:53:0017.7[facility] Isaac [id number] 00:53:000.3[facility] HmdfryuHWEWPDHUBB5920-27-33 00:53:005.6 Memorial CfeoiatUXBVPKPBVW8664-26-08 00:53:0075.6[facility]annHEMATOLOGY 2017-06-09 00:53:000.1[facility] AND [id number] 20:09:22Negative (02/10/14 3:09 PM)[facility] [id number] 20:09:22Negative *NA*(02/10/14 3:09 PM)[facility] [id number] 20:09:22Positive *ABN*(02/10/14 3:09 PM)[facility] [id number] 20:09:22Small *ABN*(02/10/14 3:09 PM)[facility] [id number] 20:09:22Large *ABN*(02/10/14 3:09 PM)[facility] [id number] 20:09:22Negative *NA*(02/10/14 3:09 PM)[facility] [id number] 20:09:220.2 [facility] [id number] 20:09:22Trace *ABN*(02/10/14 3:09 PM) [facility] [id number] 20:09:22 Test Item Value Reference Range Interpretation Comments UA pH (test code = UA pH) 8.0 1 5.0-8.0 [facility] [id number] 20:09:22Yellow *NA*(02/10/14 3:09 PM) [facility] HermannURINE AND [id number] 20:09:22 Test Item Value Reference Range Interpretation Comments UA Spec Grav (test code = UA Spec 1.015 1 Grav) [facility] [id number] 20:09:22Cloudy *ABN*(02/10/14 3:09 PM) [facility] [id number] 20:09:22Positive *ABN*(02/10/14 3:09 PM) [facility]
--- NOTE | 2021-02-12 14:16 | EDPHYS ---
Physician Documentation [facility] Name: Lucila Quiroga Age: 30 yrs Sex: Female : 1990 Arrival Date: 02/12/2021 Time: 13:05 Bed 16 Private MD: ED Physician Saroj Morrell HPI: 02/12 14:13 This 30 yrs old Female presents to ER via Ambulatory with complaints of Rash. pm1 14:13 The patient's rash thought to be caused by possibly shingles. The rash is located on pm1 the lower posterior aspect of left lateral abdomen and lower anterior aspect of left lateral abdomen. The rash can be described as raised. Onset: The symptoms/episode began/occurred yesterday. Associated signs and symptoms: Pertinent positives: Pain Pertinent negatives: fever, itching. Severity of symptoms: in the emergency department the symptoms are worse. Treatment given at home: None. The patient has not experienced similar symptoms in the past. The patient has not recently seen a physician. 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 Flu vaccine is not up to date. - Social history:: Smoking status: Patient/guardian denies using tobacco, the patient reports quitting approximately 4 years ago. ROS: 14:13 Constitutional: Negative for fever, chills, and weight loss, Cardiovascular: Negative pm1 for chest pain, palpitations, and edema, Respiratory: Negative for shortness of breath, cough, wheezing, and pleuritic chest pain, Abdomen/GI: Negative for abdominal pain, nausea, vomiting, diarrhea, and constipation, Back: Negative for injury and pain, MS/Extremity: Negative for injury and deformity. 14:13 Neuro: Negative for headache, weakness, numbness, tingling, and seizure. 14:13 Skin: Positive for rash, of the anterior aspect of left lateral abdomen and posterior aspect of left lateral abdomen. Exam: 14:13 Constitutional: This is a well developed, well nourished patient who is awake, alert, pm1 and in no acute distress. Head/Face: Normocephalic, atraumatic. 14:13 Back: No spinal tenderness. No costovertebral tenderness. Full range of motion. 14:13 MS/ Extremity: Pulses equal, no cyanosis. Neurovascular intact. Full, normal range of motion. 14:13 Cardiovascular: Exam negative for acute changes, Rate: normal, Rhythm: regular, Pulses: no pulse deficits are appreciated. 14:13 Respiratory: Exam negative for acute changes, respiratory distress, shortness of breath. 14:13 Abdomen/GI: Inspection: abdomen appears normal, Palpation: abdomen is soft and non-tender, in all quadrants. 14:13 Skin: Appearance: normal except for affected area, consistent with zoster, on the lower anterior aspect of left lateral abdomen and lower posterior aspect of left lateral abdomen. 14:13 Neuro: Exam negative for acute changes, Orientation: is normal, Mentation: is normal, Motor: is normal, moves all fours, Gait: is steady, at a normal pace, without difficulty. Vital Signs: 13:34 BP 126 / 94; Pulse 89; Resp 18 S; Temp 97.3(TE); Pulse Ox 100% on R/A; Weight 63.5 kg ca1 (R); Height 5 ft. 2 in. (157.48 cm) (R); Pain 7/10; 14:06 BP 132 / 78; Pulse 83; Resp 18; Pulse Ox 100% on R/A; zb 13:34 Body Mass Index 25.61 (63.50 kg, 157.48 cm) ca1 MDM: 14:13 Data reviewed: vital signs. Data interpreted: Pulse oximetry: on room air is 100 %. pm1 Interpretation: normal. Counseling: I had a detailed discussion with the patient and/or guardian regarding: the historical points, exam findings, and any diagnostic results supporting the discharge/admit diagnosis, the need for outpatient follow up, a emergency medicine medical director, a family practitioner, to return to the emergency department if symptoms worsen or persist or if there are any questions or concerns that arise at home. 14:15 Patient medically screened. pm1 Administered Medications: 14:31 Drug: Valtrex (valACYclovir) 1000 mg Route: PO; zb 14:32 Follow up: Response: No adverse reaction; Medication administered at discharge. zb 14:31 Drug: traMADol 50 mg {Note: RASS 0.} Route: PO; zb 14:32 Follow up: Response: No adverse reaction; Medication administered at discharge. zb 14:31 Drug: predniSONE 60 mg Route: PO; zb 14:32 Follow up: Response: Medication administered at discharge. zb Disposition: 02/12/21 14:15 Discharged to Home. Impression: Zoster [herpes zoster]. - Condition is Stable. - Discharge Instructions: Shingles. - Prescriptions for Valtrex 1 g Oral Tablet - take 1 tablet by ORAL route every 8 hours for 7 days; 21 tablet. Tramadol 50 mg Oral Tablet - take 1 tablet by ORAL route every 8 hours as needed; 12 tablet. Medrol (Dylan) 4 mg Oral Tablets, Dose Pack - take 1 tablet by ORAL route as directed - follow package instructions; 1 packet. - Medication Reconciliation Form, Thank You Letter, Antibiotic Education, Prescription Opioid Use form. - Follow up: Emergency Department; When: As needed; Reason: Worsening of condition. Follow up: Private Physician; When: 2 - 3 days; Reason: Recheck today's complaints, Continuance of care, Re-evaluation by your physician. - Problem is new. - Symptoms have improved. Addendum: 02/15/2021 20:20 Co-signature as Attending Physician, Saroj Morrell MD. m a2 Signatures: Valentino Goldman, HEEL COVER SOFTENER HEEL COVER SOFTENER pm1 Saroj Morrell MD MD ma2 Almita Briggs RN RN ca1 Alba Joseph RN RN zb Corrections: (The following items were deleted from the chart) 02/12 14:45 14:15 02/12/2021 14:15 Discharged to Home. Impression: Zoster [herpes zoster]. zb Condition is Stable. Forms are Medication Reconciliation Form, Thank You Letter, Antibiotic Education, Prescription Opioid Use. Follow up: Emergency Department; When: As needed; Reason: Worsening of condition. Follow up: Private Physician; When: 2 - 3 days; Reason: Recheck today's complaints, Continuance of care, Re-evaluation by your physician. Problem is new. Symptoms have improved. pm1
--- NOTE | 2021-02-12 14:16 | ER ---
Nurse's Notes [facility] Name: Lucila Quiroga Age: 30 yrs Sex: Female : 1990 Arrival Date: 02/12/2021 Time: 13:05 Bed 16 Private MD: Diagnosis: Zoster [herpes zoster] Presentation: 02/12 13:34 Chief complaint: Patient states: I believe I have shingles. My mom had it when she was ca1 with me. I noticed rash on the L side of my body, with stinging and burning pain. Denies fever. Coronavirus screen: Client denies travel out of the [place] in the last 14 days. At this time, the client does not indicate any symptoms associated with coronavirus-19. Ebola Screen: Patient negative for fever greater than or equal to 101.5 degrees Fahrenheit, and additional compatible Ebola Virus Disease symptoms Patient denies exposure to infectious person. Patient denies travel to an Ebola-affected area in the 21 days before illness onset. No symptoms or risks identified at this time. Initial Sepsis Screen: Does the patient meet any 2 criteria? No. Patient's initial sepsis screen is negative. Does the patient have a suspected source of infection? No. Patient's initial sepsis screen is negative. Risk Assessment: Do you want to hurt yourself or someone else? Patient reports no desire to harm self or others. Onset of symptoms was February 12, 2021. 13:34 Method Of Arrival: Ambulatory ca1 13:34 Acuity: COLEMAN 4 ca1 Triage Assessment: 14:36 General: Behavior is calm. 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 Flu vaccine is not up to date. - Social history:: Smoking status: Patient/guardian denies using tobacco, the patient reports quitting approximately 4 years ago. Screenin:07 Abuse screen: Denies threats or abuse. Denies injuries from another. Nutritional zb screening: No deficits noted. Tuberculosis screening: No symptoms or risk factors identified. Fall Risk None identified. Assessment: 14:07 Reassessment: ecp at bedside. zb 14:32 General: Appears in no apparent distress. uncomfortable. Pain: Complains of pain in zb posterior aspect of left lateral abdomen and anterior aspect of left lateral abdomen Pain radiates to posterior aspect of right lateral abdomen Pain currently is 7 out of 10 on a pain scale. Neuro: Level of Consciousness is awake, alert, obeys commands, Oriented to person, place, time, situation. Cardiovascular: Capillary refill < 3 seconds Patient's skin is warm and dry. Respiratory: Airway is patent Respiratory effort is even, unlabored, Respiratory pattern is regular, symmetrical. GI: Abdomen is flat. Derm: Rash noted that is itchy, red, urticaria, vesicular, on posterior aspect of left lateral abdomen and anterior aspect of left lateral abdomen. Musculoskeletal: Range of motion: intact in all extremities. 14:40 Reassessment: ecp at bedside, d/c instructions given. zb Vital Signs: 13:34 BP 126 / 94; Pulse 89; Resp 18 S; Temp 97.3(TE); Pulse Ox 100% on R/A; Weight 63.5 kg ca1 (R); Height 5 ft. 2 in. (157.48 cm) (R); Pain 7/10; 14:06 BP 132 / 78; Pulse 83; Resp 18; Pulse Ox 100% on R/A; zb 13:34 Body Mass Index 25.61 (63.50 kg, 157.48 cm) ca1 ED Course: 13:05 Patient arrived in ED. am2 13:37 Triage completed. ca1 13:38 Arm band placed on right wrist. ca1 14:00 Valentino Goldman NP is PHCP. pm1 14:00 Saroj Morrell MD is Attending Physician. pm1 14:06 Alba Joseph RN is Primary Nurse. zb 14:07 Patient has correct armband on for positive identification. Bed in low position. Call zb light in reach. Side rails up X 1. Pulse ox on. NIBP on. Door closed. Noise minimized. 14:35 No provider procedures requiring assistance completed. Patient did not have IV access zb during this emergency room visit. Administered Medications: 14:31 Drug: Valtrex (valACYclovir) 1000 mg Route: PO; zb 14:32 Follow up: Response: No adverse reaction; Medication administered at discharge. zb 14:31 Drug: traMADol 50 mg {Note: RASS 0.} Route: PO; zb 14:32 Follow up: Response: No adverse reaction; Medication administered at discharge. zb 14:31 Drug: predniSONE 60 mg Route: PO; zb 14:32 Follow up: Response: Medication administered at discharge. zb Outcome: 14:15 Discharge ordered by . pm1 14:36 Discharged to home ambulatory. zb 14:36 Condition: stable 14:36 Discharge instructions given to patient, Instructed on discharge instructions, follow up and referral plans. medication usage, Demonstrated understanding of instructions, follow-up care, medications, Prescriptions given X 3. 14:45 Patient left the ED. zb Signatures: Valentino Goldman NP [employer] PIT CREW PERSON pm1 Aline Sullivan am2 Almita Briggs RN RN ca1 Alba Joseph RN RN zb
[2021-02-12] MEDS ORDERED: VALACYCLOVIR 500 MG TAB ONE (14:39)
[2021-02-12] MEDS ORDERED: predniSONE 20 MG TAB ONE (14:40)
[2021-02-12] MEDS ORDERED: TRAMADOL HCL 50 MG TAB ONE (14:40)
[2021-02-12 14:56] VITALS: TEMP 97.3; O2SAT 100
[2021-02-12 14:57] VITALS: BP 132/78
== END 2021-02-12 14:45 | disposition home or self-care (01) ==
LOC: ER 12:58
DX: B02.9 Zoster without complications (principal); Z87.891 Personal history of nicotine dependence
CPT/HCPCS: 99283; J7512

== ENCOUNTER 2022-03-28 02:27 | Emergency (ER) | payer SELFPAY ==
--- OUTSIDE RECORDS SUMMARY | 2022-03-28 02:31 | XMS REPORT | Continuity of Care Document ---
:1990 Author Organization [facility] t Address [address] [place] [address] Care Team Providers Name Role Phone Pcp, Does Not Have A Primary Care Physician Jamilah JOHNSON B Attending Clinician Charley ASKEW Attending Clinician Unavailable Doctor Unassigned, Name Attending Clinician Unavailable Regina PAC, S Attending Clinician REGINA, S Attending Clinician Unavailable Jamie Mason Attending Clinician JAMIE SIMPSON Attending Clinician Unavailable ELENI WASHINGTON, Massimo Attending Clinician Unavailable ELENI WASHINGTON, Massimo Admitting Clinician Unavailable Payers Payer Name Policy Type Policy Number Effective Date Expiration Date S [facility] [place] PENDING PENDING 2019 2019 00:00:00 00:00:00 Problems Condition Condition Condition Status Onset Resolution Last Treating Co mments Source Name Details Category Date Date Treatment Clinician Date Anemia due Anemia due Disease Active U nivers to acute to acute 3-22 [place] [address] [place] [address] Obesity Obesity Disease Active Univers (BMI (BMI 3-20 ity of 30-39.9) 30-39.9) 00:00: [address] Previous Previous Disease Active Unive rs 3-18 ity of section section 00:00: [address] Encounter Encounter Disease Active Uni vers for tubal for tubal 3-18 ity of ligation ligation 00:00: [place] 00 Medical Branch 39 WKS Diagnosis Active 2017-06-08 Mem oria PREG 06-08 20:03:00 l CONTRACTIO 39 WKS 00:00: Herm vikki NS PREG 00 CONTRACTIO NS Active 7 [facility] Diagnosis Active 2017-06-08 M emoria DELIVERY 06-08 22:06:00 l 00:00: Bashir n DELIVERY 00 Active 06/08/2017 [facility] Liveborn Liveborn Disease Active 2015-10 Unive rs by by 0-06 [place] 39 weeks 39 weeks Disease Active 2015-10 Unive rs gestation gestation 0-04 ity of of of 00:00: [place] 00 [facility] Excessive Excessive Disease Active Uni vers weight weight 06-13 ity of gain gain 00:00: [place] during during 00 Medical Bran ch in third in third trimester trimester Limited Limited Disease Active Univers 06-13 ity of care in care in 00:00: [place] third third 00 Medical trimester trimester Bran ch Depression Depression Disease Active U nivers 06-13 ity of 00:00: [place] 00 Medical Branch Left Left Disease Active Univers breast breast 06-13 ity of lump lump 00:00: [place] 00 Medical Branch Encounter Encounter Disease Active Uni vers for for 06-13 ity of supervisio supervisio [place] of high n of high 00 [facility] risk risk Branch with with history of history of , , antepartum antepartum PREG/BLEED Diagnosis Active 2014-02-10 Memoria ING 02-10 16:03:00 l 13:00: [place] PREG/BLEED 00 ING Active 02/10/2014 [facility] OTHER Diagnosis Active 2010-102011-08-22 Mem oria 10-22 10:49:00 l OTHER 05:00: [place] 00 Active 08/22/2011 [facility] BITE Diagnosis Active 2010-102011-08-19 Mem oria - 17:20:00 l BITE 00:00: [place] 00 Active 08/17/2011 [facility] Diagnosis Active 2017-06-08 Memoria RELATED 22:06:00 l CONDITIONS Bashir n , UNSP, UNSP RELATED CONDITIONS , UNSP, UNSP Active [facility] Patient Problem Resolve 2010-102017-06-15 2017-06-15 Memoria currently d 11-02 00:47:40 00:47:40 l Patient 00:00: Annabella nn (finding) currently 00 (finding) Resolved 09/02/2011 Problem 06/15/2017 [facility] Allergies, Adverse Reactions, Alerts Allergy Allergy Status Severity Reaction(s) Onset Inactive Treating Comm ents Source Name Type Date Date Clinician Ciproflo Propensi Active Rash Univer s xacin ty to 06-06 ity of adverse 00:00: [place] reaction 00 Medical s Branch Nitrofur Propensi Active Other - See States U nivers antoin ty to comments 06-06 made ity of Monohyd/ adverse 00:00: symptoms [place] M-Cryst reaction 00 worse. Medical s Branch Naproxen Propensi Active Nausea Patient Unive rs ty to and/or 06-06 states ity of adverse Vomiting 00:00: she does [place] reaction 00 take Medical s Ibuprofen Branch & torodol CIPROFLO DRUG Active Rash Univers XACIN INGREDI 06-06 ity of 00:00: [place] 00 Medical Branch NITROFUR DRUG Active Other-Cmnt Univ ers ANTOIN 06-06 ity of MONOHYD/ 00:00: [place] M-CRYST 00 Medical Branch NAPROXEN DRUG Active N/V Univers INGREDI 06-06 ity of 00:00: [place] 00 Medical Branch naproxen naproxen Active Memori a bernice Gray ciproflo ciproflo Active Memori a xacin xacin l [place] Macrobid Macrobid Active Memori a bernice Gray Social History Social Habit Start Date Stop Date Quantity Comments Source Exposure to Not sure [facility] SARS-CoV-2 (event) Medica l Branch Alcohol intake 2020-09-30 2020-09-30 0 /d [facility] 00:00:00 00:00:00 Medical [place] Tobacco use and 2016-06-13 2016-06-13 Never used [facility] exposure 00:00:00 00:00:00 Medical [place] Sex Ass[birth year] At [birth year] [facility] [place] 00:00:00 00:00:00 Medical Branch Smoking Status Start Date Stop Date Source Social History 2017-06-09 01:14:49 2017-06-09 01:14:49 [facility] Never smoker [facility] [place] [facility] [place] Medications Ordered Filled Start Stop Current Ordering Indication Dosage Frequency Signature Comments Components Source Medication Medication Date Date Medication? Clinician (SIG) Name Name penicillin 2020- No 500mg 500 mg, Un yahaira v potassium 07-04 Oral, ity of (PEN-VEE K) 23:30: 22:40 ONCE, 1 [place] tablet 500 00 :00 dose, On Medic al mg Tue Branch 07/04/21 at 1830, JEREMIAH
Re ason for Anti-Infec tive: Empiric Therapy for Suspected Infection< br>Empiric Therapy Site: [facility]
D uration of therapy: 72 hours dexamethaso 2020- No 10mg 10 mg, Uni vers ne 07-04 Oral, ity of (DECADRON 23:30: 22:40 ONCE, 1 [place] PHOSPHATE) 00 :00 dose, On Medic al injection Tue Branch 10 mg 07/04/21 at 1830, STAT iopamidol 2020- No [id number] 100mL 100 mL, Univers (ISOVUE 07-04 Intravenou ity o f 370-500 mL) 21:00: 19:42 s, ONCE, 1 [place] injection 00 :00 dose, On Medica l 100 mL Tue Branch 07/04/21 at 1600, Routine chlorhexidi Yes [id number] 15mL Swish and Univers ne 0.12 % 07-04 spit out ity of mouthwash 00:00: 15 mL 2 [place] 00 (two) Medical times Branch daily. penicillin 2020- No [id number] 500mg Take 2 Univers v potassium 07-04 tablets by i ty of 250 mg 00:00: 04:59 mouth 4 [place] tablet 00 :00 (four) Medical times Branch daily for 7 days. acetaminoph 2020- No [id number] 1{tbl} Take 1 U nivers en-codeine 07-04 tablet by ity of (TYLENOL-CO 00:00: 04:59 [place] DEINE #3) 00 :00 every 6 Medical 300-30 mg (six) Branch tablet hours as needed for Pain (scale 7-10) for up to 7 days. Indication s: acute pain acetaminoph 2019- Yes [id number] 1{tbl} Take 1 Un yahaira en-codeine 2-18 tablet by ity of 300-30 mg 00:00: mouth [place] tablet 00 every 4 Medical (four) Branch hours as needed for Pain (scale 4-6). Indication s: acute pain acetaminoph 2019-10 Yes [id number] 1{tbl} Take 1 Un yahaira en-codeine 2-18 tablet by ity of 300-30 mg 00:00: mouth [place] tablet 00 every 4 Medical (four) Branch hours as needed for Pain (scale 4-6). Indication s: acute pain ibuprofen 2019-10 Yes [id number] 600mg Take 1 U nivers 600 mg 2-02 tablet by ity of tablet 00:00: mouth [place] 00 every 6 Medical (six) Branch hours as needed for Pain (scale 4-6). chlorhexidi 2019-10 Yes [id number] 15mL Swish and Univers ne 2-02 spit out ity of (PERIDEX) 00:00: 15 mL 2 [place] 0.12 % 00 (two) Medical mouthwash times Branch daily. ibuprofen 2019-10 Yes [id number] 600mg Take 1 U nivers 600 mg 2-02 tablet by ity of tablet 00:00: mouth [place] 00 every 6 Medical (six) Branch hours as needed for Pain (scale 4-6). chlorhexidi 2019-10 Yes [id number] 15mL Swish and Univers ne 2-02 spit out ity of (PERIDEX) 00:00: 15 mL 2 [place] 0.12 % 00 (two) Medical mouthwash times Branch daily. cyclobenzap 2018-10 Yes [id number] 5mg Take 1 Univers rine 5 mg 1-14 tablet by ity o f tablet 00:00: mouth 3 [place] 00 (three) Medical times Branch daily. traMADol 2018-10 Yes [id number] 50mg Take 1 Un yahaira (ULTRAM) 50 1-14 tablet by ity of mg tablet 00:00: mouth [place] 00 every 8 Medical (eight) Branch hours as needed for Pain (scale 4-6). cyclobenzap 2018-10 Yes [id number] 5mg Take 1 Univers rine 5 mg 1-14 tablet by ity o f tablet 00:00: mouth 3 [place] 00 (three) Medical times Branch daily. traMADol 2018-10 Yes [id number] 50mg Take 1 Un yahaira (ULTRAM) 50 1-14 tablet by ity of mg tablet 00:00: mouth [place] 00 every 8 Medical (eight) Branch hours as needed for Pain (scale 4-6). ferrous Yes [id number] 325mg Take 1 Un yahaira sulfate 325 3-23 tablet by ity of mg (65 mg 00:00: mouth 2 [place] iron) 00 (two) Medical tablet times Branch daily. ferrous Yes [id number] 325mg Take 1 Un yahaira sulfate 325 3-23 tablet by ity of mg (65 mg 00:00: mouth 2 [place] iron) 00 (two) Medical tablet times Branch daily. HYDROcodone Yes [id number] 1{tbl} Take 1 Univers -acetaminop 3-22 tablet by ity of hen (NORCO) 00:00: mouth [place] 10-325 mg 00 every 6 Medical tablet (six) Branch hours as needed for Pain (scale 1-3), Pain (scale 4-6) or Pain (scale 7-10). HYDROcodone Yes [id number] 1{tbl} Take 1 Univers -acetaminop 3-22 tablet by ity of hen (NORCO) 00:00: mouth [place] 10-325 mg 00 every 6 Medical tablet (six) Branch hours as needed for Pain (scale 1-3), Pain (scale 4-6) or Pain (scale 7-10). ibuprofen Yes 600 mg = 1 Me moria 600 mg oral 8-30 tab, PO, l tablet 11:49: Q6H, X 3 [place] 00 day, # 12 tab, 0 Refill(s) Acetaminoph Yes 2 tab, PO, Memoria en 300 MG / 8-30 Q4H, PRN l Codeine 11:49: Pain Score Herm vikki Phosphate 00 4-6, X 3 30 MG Oral day, # 24 Tablet tab, 0 [Tylenol Refill(s) with Codeine #3] Docusate Yes 100 mg = 1 Mem oria Sodium 100 8- cap, PO, l MG Oral 11:49: BID, PRN Bashir n Capsule 00 Constipati on, # 42 cap, 0 Refill(s) Acetaminoph No Notes: Do M emoria en 300 MG / 06-10 not exceed l Codeine 13:27: 4gm/day of Herm vikki Phosphate 00 acetaminop 30 MG Oral hen. Tablet (Same as: [Tylenol Tylenol with with Codeine #3] Codeine # 3) Saline No Notes: Memoria Flush 0.9% 06-09 (Same as: l 14:00: BD [place] Posiflush) No 1 tab, Memoria Multivitami 06-09 Route: PO, l ns oral 14:00: Drug Form: Herm vikki tablet 00 TAB, Dosing Weight 81.818, kg, Daily, Start date: 06/09/17 9:00:00 CDT, Duration: 30 day, Stop date: 07/08/17 9:00:00 CDT Sodium No 25 mL, Memoria Chloride 06-09 Route: IV, l 0.9% IV 13:26: Start Isaac date: 06/09/17 8:26:00 CDT, Duration: 30 day, Stop date: 07/09/17 8:25:00 CDT, PRN Line Flush BD Normal No Notes: Memori a Saline 06-09 (Same as: l Flush 13:26: BD [place] Posiflush) Hydromorpho No Notes: Margarito giovany ne 06-09 Same as l 13:23: Dilaudid Ibuprofen No Notes: Memori a 06-09 (Same as: l 05:00: Motrin) "Do Not Crush" Take with food. Naloxone No Notes: Memoria 06-09 Same as l 04:00: Narcan 0.5 ML No Notes: Memoria Bordetella 06-09 (Tdap ) l pertussis 04:00: For Isaac filamentous Adolecent hemagglutin and Adult in vaccine, use For IM inactivated Use. Same 0.01 MG/ML as: Adacel / (Tdap) Bordetella pertussis fimbriae 2/3 vaccine, inactivated 0.01 MG/ML / Bordetella pertussis pertactin vaccine, inactivated 0.006 MG/ML / Bordetella pertussis toxoid vacci M-M-R II No Notes: Memoria 06-09 (Same as: l 04:00: M-M-R II) (measles-m umps-rubel la virus vaccine 0.5 [...] oria 06-09 to exceed l 03:52: 400mg/day. [place] 00 (Same As: Ultram) Saline No Notes: Memoria Flush 0.9% 06-09 (Same as: l 03:52: BD Posiflush) Simethicone No Notes: Margarito giovany 06-09 (Same as: l 03:52: Mylicon) zolpidem No Notes: Memoria 06-09 (Same As: l 03:52: Ambien) [place] 00 lanolin No Notes: Memoria topical 06-09 (Same l cream 03:52: as:Lanolin Bashir n 00 ) Acetaminoph No Notes: Do M emoria en 06-09 not exceed l 03:52: 4 gm/day. [place] 00 (Same as: Tylenol) Bisacodyl No Notes: Memori a 06-09 (Same As: l 03:52: Dulcolax, [place] 00 Correctol) (Do Not Crush) "Do Not Crush" [...] 06-09 500 mL, l 03:52: Rate: 42 [place] 00 ml/hr, Infuse over: 11.9 hr, Dosing Weight 81.818, kg, Route: IV, Total Volume: 500 mL, Start date: 06/08/17 22:52:00 CDT, Duration: 2 day, Stop date: 06/10/17 22:51:00 CDT, Replace Every: 11.9 hr dexamethaso No Route: IV, Memoria ne (ANES) 06-09 Drug form: l 03:42: INJ, ONCE, Stop date: 06/08/17 22:42:00 CDT phenylephri No Route: IV, Memoria ne (ANES) 06-09 Drug form: l 03:32: INJ, ONCE, Stop date: 06/08/17 22:32:00 CDT ePHEDrine No Route: IV, Me moria (ANES) 06-09 Drug form: l 03:32: INJ, ONCE, Stop date: 06/08/17 22:32:00 CDT morphine No Route: IV, Mem oria Sulfate 06-09 Drug form: l (ANES) 03:32: SOLN, [place] 00 ONCE, Stop date: 06/08/17 22:32:00 CDT bupivacaine No Route: Margarito giovany (ANES) 06-09 INTRATHECA l 03:32: L, Drug Form: INJ, ONCE, Stop date: 06/08/17 22:32:00 CDT acetaminoph No Route: IV, Memoria en (ANES) 06-09 Drug form: l (ANES) 03:31: INJ, Start Annabella nn 00 date: 06/08/17 22:31:00 CDT, Stop date: 06/08/17 23:31:00 CDT metoclopram No Route: IV, Memoria leslie (ANES) 06-09 Drug form: l 03:22: INJ, ONCE, [place] 00 Stop date: 06/08/17 22:22:00 CDT ondansetron No Route: IV, Memoria (ANES) 06-09 Drug form: l 03:22: INJ, ONCE, Stop date: 06/08/17 22:22:00 CDT oxytocin No Route: IV, Mem oria (ANES) 06-09 Drug form: l (ANES) 03:18: SOLN, Start date: 06/08/17 22:18:00 CDT, Stop [...] en 06-09 acetaminop l 03:04: hen 4000 [place] 00 mg/day (4 gm/day). (Same as: Tylenol Extra Strength) Oxycodone No Notes: Memori a Hydrochlori 06-09 (Same as: l de 5 MG 03:04: Roxicodone Herm vikki Oral Tablet 00 ) ceFAZolin No Route: IV, Me moria (ANES) 06-09 Drug form: l (ANES) 02:47: INJ, Start Annabella nn date: 06/08/17 21:47:00 CDT, Stop date: 06/08/17 22:47:00 CDT LR 1000 mL No Route: IV, M emoria INJ (ANES) 06-09 Total l 02:47: Volume: [place] 00 1,000, Start date: 06/08/17 21:47:00 CDT, Stop date: 06/08/17 22:47:00 CDT Cefazolin No Notes: Memori a 06-09 Same as: l 01:00: Ancef [place] Misoprostol No Notes: Margarito giovany 06-09 (Same l 01:00: as:Cytotec Isaac ) Take with food Methylergon No Notes: Margarito giovany ovine 06-09 (Same l 01:00: as:Metherg [place] ine) Carboprost No Notes: Memor ia 06-09 (Same As: l 01:00: Hemabate) Terbutaline No Notes: Margarito giovany 06-09 DO NOT l 00:46: USE IN [place] [employer] (Same As: Meseretthine) Oxytocin No 30 unit, Memor ia 06-09 500 mL, l 00:46: Rate: 42 [place] 00 ml/hr, Infuse over: 11.9 hr, Dosing Weight 81.818, kg, Route: IV, Total Volume: 500 mL, Start date: 06/08/17 19:46:00 CDT, Duration: 1 doses or times, Stop date: 06/09/17 7:39:00 CDT, Replace Every: 11.9 hr Metoclopram No Notes: Margarito giovany leslie 06-09 (Same as: l 00:46: Reglan) Ondansetron No Notes: Margarito giovany - (Same as: l 00:46: Zofran) MEDICATION WASTE Product Size: 4 mg Product Wasted: ___ mg Morphine No 2 mg, 1 Memori a 8-27 mL, Route: l 00:46: IVP, Drug form: SOLN, Q2H, Dosing Weight 81.818, kg, PRN Pain Score 7-10, Start date: 06/08/17 19:46:00 CDT, Duration: 30 day, Stop date: 07/08/17 19:45:00 CDT Citric Acid No Notes: Margarito giovany / sodium 06-09 (Same As: l citrate 00:46: Bicitra, Bashir n 00 Cytra-2) Sodium citrate-ci tric acid (500-334 mg/5 mL): 1 mL contains sodium 1 mEq/mL and bicarbonat e 1 mEq/mL Calcium No 1,000 mL, Memor ia Chloride 06-09 1,000 l 0.0014 00:46: ml/hr, MEQ/ML / 00 Infuse Potassium Over: 1 Chloride hr, Route: 0.004 IV, 1,000, MEQ/ML / Drug form: Sodium INJ, ONCE, Chloride Dosing 0.103 Weight MEQ/ML / 81.818 kg, Sodium Start Lactate date: 0.028 06/08/17 MEQ/ML 19:46:00 Injectable CDT, Stop Solution date: 06/08/17 19:46:00 CDT [place] 2010-10 Yes Sharon Lemus 1 tab, PO, Memoria oral tablet 10-20 Elsie Q6H, PRN, l 01:19: 20 tabIsaac 21 for pain, Substituti on Allowed, Maintenanc e, TAB Bactrim DS 2010-10 Yes Audra Kilgore 1 tab, PO, Memoria oral tablet 10-20 Bravo BID, 20 l 01:19: tabIsaac 15 Substituti on Allowed, Maintenanc e [place] 2010-10 No Audra Kilgore 2 tab, Memoria oral tablet 10-19 Bravo Route: PO, l 23:52: Drug Form: Isaac 00 TAB, ONCE, Start date: 08/19/11 17:52:00, Stop date: 08/19/11 17:52:00 Vital Signs Vital Name Observation Time Observation Value Comments Source Systolic blood 2021-07-04 18:49:00 130 mm[Hg] Univer sity of pressure [facility] Diastolic blood 2021-07-04 18:49:00 91 mm[Hg] Unive rsity of pressure [facility] Heart rate 2021-07-04 18:49:00 79 /min [facility] Body temperature 2021-07-04 18:49:00 37.39 [facility] Res[facility] rate 2021-07-04 18:49:00 22 /min [facility] Body weight 2021-07-04 18:49:00 60.782 kg [facility] BMI 2021-07-04 18:49:00 24.51 kg/m2 [facility] Oxygen saturation in 2021-07-04 18:49:00 100 /min [facility] Arterial blood by [facility] Pulse oximetry Branch Temperature Oral (F) 2017-06-12 13:00:00 98 F [facility] [place] Heart Rate 2017-06-12 13:00:00 [facility] [place] Respitory Rate 2017-06-12 13:00:00 Memori al [place] Systolic (mm Hg) 2017-06-12 13:00:00 Margarito rial [place] Diastolic (mm Hg) 2017-06-12 13:00:00 Mem orial [place] Heart Rate 2017-06-12 05:00:00 Memorial [place] Respitory Rate 2017-06-12 05:00:00 Memori al [place] Systolic (mm Hg) 2017-06-12 05:00:00 Margarito rial [place] Diastolic (mm Hg) 2017-06-12 05:00:00 Mem orial [place] Temperature Oral (F) 2017-06-12 05:00:00 97.5 F [facility] [place] Systolic (mm Hg) 2017-06-11 21:55:00 Margarito rial [place] Diastolic (mm Hg) 2017-06-11 21:55:00 Mem orial [place] Respitory Rate 2017-06-11 21:55:00 Memori al [place] Heart Rate 2017-06-11 21:55:00 Memorial [place] Temperature Oral (F) 2017-06-11 21:55:00 98.9 F [facility] [place] Weight 2017-06-09 00:28:00 [facility] [place] Height 2017-06-09 00:28:00 157.48 cm [facility] [place] BMI Calculated 2017-06-09 00:28:00 Memori al [place] Weight 2017-06-08 23:59:00 [facility] [place] BMI Calculated 2017-06-08 23:59:00 Memori al [place] Height 2017-06-08 23:59:00 157.48 cm [facility] [place] Weight 2014-02-10 18:44:00 [facility] [place] Height 2014-02-10 18:44:00 157.48 cm [facility] [place] BMI Calculated 2014-02-10 18:44:00 Memori al [place] Temperature Oral (F) 2014-02-10 18:44:00 98.5 F [facility] [place] Heart Rate 2014-02-10 18:44:00 [facility] [place] Respitory Rate 2014-02-10 18:44:00 Memori al [place] Systolic (mm Hg) 2014-02-10 18:44:00 Margarito rial [place] Diastolic (mm Hg) 2014-02-10 18:44:00 Mem orial [place] Height 2011-08-22 16:34:00 160.02 cm [facility] [place] Weight 2011-08-22 16:34:00 [facility] [place] Temperature Oral (F) 2011-08-22 16:34:00 98.1 F [facility] [place] Heart Rate 2011-08-22 16:34:00 [facility] [place] Respitory Rate 2011-08-22 16:34:00 Memori al [place] Systolic (mm Hg) 2011-08-22 16:34:00 Margarito rial [place] Diastolic (mm Hg) 2011-08-22 16:34:00 Mem orial [place] Weight 2011-08-19 20:51:00 [facility] [place] Height 2011-08-19 20:51:00 162.56 cm [facility] [place] Temperature Oral (F) 2011-08-19 20:51:00 98.6 F [facility] [place] Respitory Rate 2011-08-19 20:51:00 Memori al [place] Heart Rate 2011-08-19 20:51:00 [facility] [place] Diastolic (mm Hg) 2011-08-19 20:51:00 Lorenzo Gray Systolic (mm Hg) 2011-08-19 20:51:00 Margarito Gray Procedures Procedure Date / Time Performed Performing Clinician Britney mccormick CT SOFT TISSUE NECK W 2021-07-04 19:49:08 Edwin Askew [facility] CONTRAST [facility] BASIC METABOLIC PANEL 2021-07-04 19:35:00 Edwin Askew [facility] (NA, K, CL, CO2, Medical Branch GLUCOSE, BUN, CREATININE, CA) CBC WITH DIFF 2021-07-04 19:35:00 Edwin Askew [facility] COVID-19 (ID NOW 2021-07-04 19:35:00 Edwin Askew [facility] RAPID TESTING) [facility] RAPID STREP SCREEN 2021-07-04 19:34:00 Edwin Askew [facility] FOR GROUP A Medical Branch NOTICE OF PRIVACY 2021-07-04 18:45:01 Doctor Unassigned, No Univ [facility] CONSENT/REFUSAL FOR 2021-07-04 18:41:49 [facility] Name [facility] TREATMENT section Ankit duvall Encounters Start End Encounter Admission Attending Care Care Encounter Source Date/Time Date/Time Type Type Clinicians Facility Department ID 2021-07-04 2021-07-04 Emergency [place], [facility] [id number] Univers 13:49:00 17:42:00 Edwin Phipps [id number] i ty [facility] [id number] [facility] [id number] [facility] 084 Branch 2021-07-04 2021-07-04 Emergency X JAMILAH, [facility] ERT [id number] Univers 13:42:00 13:42:00 [facility] 2021-07-04 2021-07-04 Orders Doctor FISHER [id number] Univers 00:00:00 00:00:00 Only UnassignedPATRICK [id number] ity of [place] [facility] [id number] [facility] [id number] [address] 2020-09-30 2020-09-30 [facility] [id number] 19:30:00 19:53:00 Rowan Phipps [id number] [place] [id number] [place] [id number] 2020-09-30 2020-09-30 Emergency X REGINA [facility] ERT [id number] Univers 19:15:00 19:15:00 ROWAN [facility] 2020-09-14 2020-09-14 Emergency Shabnam Simpson [facility] [id number] 12:29:00 13:06:00 Jamie Phipps [id number] [place] [id number] [place] [id number] 2020-09-14 2020-09-14 Emergency X Shabnam SIMPSON [facility] ERT [id number] Univers 12:29:00 12:29:00 [facility] 2019-08-27 2019-08-27 Emergency X ELENI WASHINGTON [facility] ERT [id number] Univers 12:08:34 13:45:00 GIO [facility] 2017-06-08 2017-06-12 Inpatient [facility] [id number] Memoria 23:58:00 19:30:00 r Isaac 04 [facility] 2014-02-10 2014-02-10 [facility] [id number] Memoria 18:25:00 20:45:00 Emergency r Isaac 03 l [facility] 2011-08-22 2011-08-22 Emergency [facility] [id number] Memoria 10:24:00 10:25:00 r 02 [facility] 2011-08-19 2011-08-19 Emergency [facility] [id number] Memoria 14:48:00 19:32:00 r 01 [facility] Results Test Description Test Time Test Comments Results Result Comments Source BASIC METABOLIC PANEL (NA, K, CL, CO2, GLUCOSE, BUN, 2021-06 19:56:18 CREATININE, CA) Test Item Value Reference Range Interpretation Comme nts NA (test code = 5553628344) 142 mmol/L 135-145 K (test code = 3444553026) 3.8 mmol/L 3.5-5.0 CL (test code = 8849520597) 106 mmol/L 98-108 CO2 TOTAL (test code = 26 mmol/L 23-31 0398439354) AGAP (test code = 9934945506) 2-16 BUN (test code = 6641788900) 9 mg/dL 7-23 GLUCOSE (test code = 2256450594) 96 mg/dL 70-110 CREATININE (test code = 0.69 mg/dL 0.50-1.04 1446461656) CALCIUM (test code = 5037928261) 9.5 mg/dL 8.6-10.6 eGFR (test code = 8282610626) mL/min/1.73m2 RAMÓN (test code = RAMÓN) Association of Glomerular Filtration Rate (GFR) and Staging of Kidney Disease* + +--------- + ----+| GFR (mL/min/1.73 m2) ?| With Kidney Damage ?| ?Without Kidney Damage+ +--- + +| ?>90 ?| ?Stage one ?| ? Normal ?+ +-------- + -----+| ?60-89 ?| ?Stage two ?| ? Decreased GFR ? + +--------- + ----+| ?30-59 ?| ?Stage three ?| ? Stage three ? + +--------- + ----+| ?15-29 ?| ?Stage four ? | ? Stage four ?+ +-------- + -----+| ?<15 (or dialysis) ? ?| ?Stage five ? | ? Stage five ?+ +-------- + -----+ *Each stage assumes the associated GFR level has been in effect for at least three months. ?Stages 1 to 5, with or without kidney disease, indicate chronic kidney disease. Notes: Determination of stages one and two (with eGFR >59mL/min/1.73 m2) requires estimation of kidney damage for at least three months as defined by structural or functional abnormalities of the kidney, manifested by either:Pathological abnormalities or Markers of kidney damage (including abnormalities in the composition of the blood or urine or abnormalities in imaging tests). [facility] WITH [id number] 19:47:53 Test Item Value Reference Range Interpretation Comments WBC (test code = See_Comment [Automated 6690-2) message] The sy stem which generated this result transmitted reference range : 4.30 - 11.10 10*3/?L. The reference range was not used to interpret this result as normal/abnormal . RBC (test code = See_Comment [Automated 789-8) message] The sy stem which generated this result transmitted reference range : 3.93 - 5.25 10*6/?L. The reference range was not used to interpret this result as normal/abnormal . HGB (test code = 14.8 g/dL 11.6-15.0 718-7) HCT (test code = 43.3 % 35.7-45.2 4544-3) MCV (test code = 90.2 fL 80.6-95.5 787-2) MCH (test code = 30.8 pg 25.9-32.8 785-6) MCHC (test code = 34.2 g/dL 31.6-35.1 786-4) RDW-SD (test code = 38.8 fL 39.0-49.9 L 80631-7) RDW-CV (test code = 11.8 % 12.0-15.5 L 788-0) PLT (test code = See_Comment [Automated 777-3) message] The sy stem which generated this result transmitted reference range : 166 - 358 10*3/ ?L. The reference r danny was not used to interpret this result as normal/abnormal . MPV (test code = 9.9 fL 9.5-12.9 79940-5) NRBC/100 WBC (test See_Comment [Automat ed code = [id number]) message] The system which generated this result transmitted reference range : 0.0 - 10.0 /100 WBCs. The refer ence range was not u sed to interpret th is result as normal/abnormal . NRBC x10^3 (test code <0.01 See_Comment [Auto mated = [id number]) message] The s ystem which generated this result transmitted reference range : 10*3/?L. The reference range was not used to interpret this result as normal/abnormal . GRAN MAT (NEUT) % 50.6 % (test code = 770-8) IMM GRAN % (test code 0.20 % = 9899808094) LYMPH % (test code = 38.9 % 736-9) MONO % (test code = 6.2 % 5905-5) EOS % (test code = 3.3 % 713-8) BASO % (test code = 0.8 % 706-2) GRAN MAT x10^3(ANC) 2.62 10*3/uL 1.88-7.09 (test code = 0060168751) IMM GRAN x10^3 (test <0.03 0.00-0.06 code = 6242171021) LYMPH x10^3 (test code 2.01 10*3/uL 1.32-3.29 = 731-0) MONO x10^3 (test code 0.32 10*3/uL 0.33-0.92 L = 742-7) EOS x10^3 (test code = 0.17 10*3/uL 0.03-0.39 711-2) BASO x10^3 (test code 0.04 10*3/uL 0.01-0.07 = 704-7) Lab Interpretation Abnormal (test code = 31966-6) [facility] Test Item Value Reference Range Interpretation Comments Hgb (test code = Hgb) 10.8 12.0-16.0 [id number] 12:31:00 Test Item Value Reference Range Interpretation Comments Hct (test code = Hct) 32.7 36.0-48.0 [facility] CenterArlgfsrKNCMPIUQCD1936-71-87 12:31:00 Test Item Value Reference Range Interpretation Comments Rubella IgG (test code = Rubella IgG) 42.[address] [facility] [employer] [id number] 00:53:00 Test Item Value Reference Range Interpretation Comments Antibody Scrn (test Negative (06/08/17 7:53 code = Antibody Scrn) PM) [facility] [employer] [id number] 00:53:00 Test Item Value Reference Range Interpretation Comments Rhig Reqd (test code = See Note 1(06/08/17 7:53 Rhig Reqd) PM) [facility] [employer] [id number] 00:53:00 Test Item Value Reference Range Interpretation Comments ABO/Rh (test code = ABO/Rh) A POS [employer] [id number] 00:53:00 Test Item Value Reference Range Interpretation Comments eGFR (test code = eGFR) 137 [facility] [id number] 00:53:00 Test Item Value Reference Range Interpretation Comments Creatinine Lvl (test code = Creatinine 0.48 0.50-1.40 Lvl) [facility] [employer] [id number] 00:53:00 Test Item Value Reference Range Interpretation Comments AST (test code = AST) 22 See_Comment [Auto mated message] The system which ge nerated this result transmit simeon reference range : <=37. The reference range was not used to interpr et this result as hossein l/abnormal. [facility] [employer] [id number] 00:53:00 Test Item Value Reference Range Interpretation Comments ALT (test code = ALT) 23 See_Comment [Auto mated message] The system which ge nerated this result transmit simeon reference range : <=65. The reference range was not used to interpr et this result as hossein l/abnormal. [facility] [employer] [id number] 00:53:00 Test Item Value Reference Range Interpretation Comments UDS Note (test code = See Note *NA*(06/08/17 UDS Note) 7:53 PM) [facility] [employer] [id number] 00:53:00 Test Item Value Reference Range Interpretation Comments U Amph Scr (test code Negative *NA*(06/08/17 = U Amph Scr) 7:53 PM) [facility] [id number] 00:53:00 Test Item Value Reference Range Interpretation Comments U Rita Scr (test code Negative *NA*(06/08/17 = U Rita Scr) 7:53 PM) [facility] [id number] 00:53:00 Test Item Value Reference Range Interpretation Comments U Benzodia Scr (test Negative *NA*(06/08/17 code = U Benzodia Scr) 7:53 PM) [facility] [id number] 00:53:00 Test Item Value Reference Range Interpretation Comments U Cocaine Scr (test Negative *NA*(06/08/17 code = U Cocaine Scr) 7:53 PM) [facility] [id number] 00:53:00 Test Item Value Reference Range Interpretation Comments U Cannab Scr (test Negative *NA*(06/08/17 code = U Cannab Scr) 7:53 PM) [facility] [id number] 00:53:00 Test Item Value Reference Range Interpretation Comments U Phencyc Scr (test Negative *NA*(06/08/17 code = U Phencyc Scr) 7:53 PM) [facility] [id number] 00:53:00 Test Item Value Reference Range Interpretation Comments U Opiate Scr (test Negative *NA*(06/08/17 code = U Opiate Scr) 7:53 PM) [facility] CenterBbrliqeSZTFHGZAVE9571-49-87 00:53:00 Test Item Value Reference Range Interpretation Comments Eosinophils (test code = 0.8 See_Comment [A utomated message] The Eosinophils) system which ge nerated this result tra nsmitted reference range : <=4.0. The reference r danny was not used to int erpret this result as normal/abnormal . [facility]BhhnvhvCGSHULFZZL1342-73-56 00:53:00 Test Item Value Reference Range Interpretation Comments Lymphocytes (test code = Lymphocytes) 17.7 20.0-40.0 [facility] CenterHogbhkwPBTHNMRKWO1621-34-53 00:53:00 Test Item Value Reference Range Interpretation Comments Basophils (test code = 0.3 See_Comment [Aut omated message] The Basophils) system which ge nerated this result tra nsmitted reference range : <=1.0. The reference r danny was not used to int erpret this result as normal/abnormal . [facility] CenterDhojziwTNWSHGTNGV1433-38-83 00:53:00 Test Item Value Reference Range Interpretation Comments Monocytes (test code = Monocytes) 5.6 2.0-12.0 [facility] CenterJrbpwvcYRGLQQFAFU7680-36-13 00:53:00 Test Item Value Reference Range Interpretation Comments Segs (test code = Segs) 75.6 45.0-75.0 [facility] CenterTtwwubvPTTDWOCSMF8428-75-97 00:53:00 Test Item Value Reference Range Interpretation Comments Eosinophils # (test code 0.1 See_Comment [A utomated message] The = Eosinophils #) system whic h generated this result tra nsmitted reference range : <=0.5. The reference r danny was not used to int erpret this result as normal/abnormal . [facility] HospitalVgeogmdIPTIGRTIUU1717-18-99 00:53:00 Test Item Value Reference Range Interpretation Comments Monocytes # (test code 0.6 See_Comment [Aut omated message] The = Monocytes #) system which generated this result tra nsmitted reference range : <=0.8. The reference r danny was not used to int erpret this result as normal/abnormal . [facility] HospitalKxtccntHTRSPKFDZX2081-73-83 00:53:00 Test Item Value Reference Range Interpretation Comments Lymphocytes # (test code = Lymphocytes 1.8 1.0-5.5 #) [facility] HospitalNjbatuuQNUEBXOQJJ9629-52-08 00:53:00 Test Item Value Reference Range Interpretation Comments Segs-Bands # (test code = Segs-Bands #) 7.6 1.5-8.1 [facility] HospitalWfromfhUJGPURIMBI3068-40-34 00:53:00 Test Item Value Reference Range Interpretation Comments Platelet (test code = Platelet) 188 133-450 [facility] HospitalBqohtpxYYLSNMWQCL2991-73-99 00:53:00 Test Item Value Reference Range Interpretation Comments MPV (test code = MPV) 7.5 7.4-10.4 [facility] HospitalVxzuriaSREQPUYYZS8497-97-61 00:53:00 Test Item Value Reference Range Interpretation Comments WBC (test code = WBC) 10.1 3.7-10.4 [facility] HospitalSeudvvuQYCAEJBYUI9782-57-53 00:53:00 Test Item Value Reference Range Interpretation Comments RBC (test code = RBC) 3.96 4.20-5.40 [facility] HospitalPzjtqswAUUYVTXMDF6809-42-29 00:53:00 Test Item Value Reference Range Interpretation Comments MCHC (test code = MCHC) 33.1 32.0-36.0 [facility] HospitalVzfahcuVULNAIUIOA6404-94-20 00:53:00 Test Item Value Reference Range Interpretation Comments RDW (test code = RDW) 15.0 11.5-14.5 [facility] HospitalOwicjxiLYRVKXFSHA7205-04-14 00:53:00 Test Item Value Reference Range Interpretation Comments MCV (test code = MCV) 79.6 80.0-98.0 [facility] HospitalIevutxpZWMUGTOELG1644-93-98 00:53:00 Test Item Value Reference Range Interpretation Comments Hct (test code = Hct) 31.5 36.0-48.0 [facility] [id number] 00:53:00 Test Item Value Reference Range Interpretation Comments Hgb (test code = Hgb) 10.4 12.0-16.0 [facility] CenterDeblzcbVVEFGRJSUZ0506-18-35 00:53:00 Test Item Value Reference Range Interpretation Comments MCH (test code = MCH) 26.3 pg 27.0-31.0 [facility] HospitalFxpfglrKXIOLAHJVH8351-46-25 00:53:00 Test Item Value Reference Range Interpretation Comments HIV. (test code = Negative *NA*(06/08/17 HIV.) 7:53 PM) [facility] HospitalYndfeerAVXDQEDHUD3758-62-78 00:53:00 Test Item Value Reference Range Interpretation Comments Treponemal Scr (test Non Reactive code = Treponemal Scr) *NA*(06/08/17 7:53 PM) [facility] HospitalKpvoybmWPBMORGDWG4607-38-02 00:53:00 Test Item Value Reference Range Interpretation Comments Hep Bs Ag (test code Negative *NA*(06/08/17 = Hep Bs Ag) 7:53 PM) [facility] [id number] 00:53:00 Test Item Value Reference Range Interpretation Comments U Prot/Creat (test code = U Prot/Creat) 0.4 [facility]2017-08-27 00:53:00 Test Item Value Reference Range Interpretation Comments U Protein (test code = U Protein) 21.8 [facility]2017-08-27 00:53:00 Test Item Value Reference Range Interpretation Comments U Creatinine (test code = U Creatinine) 55.90 [facility] AND [id number] 20:09:22 Test Item Value Reference Range Interpretation Comments UA Glucose (test code Negative (02/10/14 3:09 = UA Glucose) PM) [facility] AND [id number] 20:09:22 Test Item Value Reference Range Interpretation Comments UA Ketones (test code Negative *NA*(02/10/14 = UA Ketones) 3:09 PM) [facility] AND [id number] 20:09:22 Test Item Value Reference Range Interpretation Comments UA Bacteria (test code = UA Many /HPF Bacteria) [facility] AND [id number] 20:09:22 Test Item Value Reference Range Interpretation Comments UA RBC (test code = 0-2 /HPF See_Comment [Automa simeon message] The UA RBC) system which ge nerated this result tra nsmitted reference range : <=2. The reference range was not used to interpr et this result as hossein l/abnormal. [facility] AND [id number] 20:09:22 Test Item Value Reference Range Interpretation Comments UA Nitrite (test code Positive *ABN*(02/10/14 = UA Nitrite) 3:09 PM) [facility] AND [id number] 20:09:22 Test Item Value Reference Range Interpretation Comments UA WBC (test code = UA WBC) 3-5 /HPF [facility] AND [id number] 20:09:22 Test Item Value Reference Range Interpretation Comments UA Sq Epi (test code = UA Sq Epi) Many /LPF [facility] AND [id number] 20:09:22 Test Item Value Reference Range Interpretation Comments UA Leuk Est (test code Small *ABN*(02/10/14 = UA Leuk Est) 3:09 PM) [facility] AND [id number] 20:09:22 Test Item Value Reference Range Interpretation Comments UA Blood (test code = Large *ABN*(02/10/14 UA Blood) 3:09 PM) [facility] AND [id number] 20:09:22 Test Item Value Reference Range Interpretation Comments UA Bili (test code = Negative *NA*(02/10/14 UA Bili) 3:09 PM) [facility] AND [id number] 20:09:22 Test Item Value Reference Range Interpretation Comments UA Urobilinogen (test code = UA 0.2 0.1-1.0 Urobilinogen) [facility] AND [id number] 20:09:22 Test Item Value Reference Range Interpretation Comments UA Protein (test code = Trace *ABN*(02/10/14 UA Protein) 3:09 PM) [facility] AND [id number] 20:09:22 Test Item Value Reference Range Interpretation Comments UA pH (test code = UA pH) 8.0 1 5.0-8.0 [facility] AND [id number] 20:09:22 Test Item Value Reference Range Interpretation Comments UA Color (test code = Yellow *NA*(02/10/14 UA Color) 3:09 PM) [facility] [id number] 20:09:22 Test Item Value Reference Range Interpretation Comments UA Spec Grav (test code = UA Spec 1.015 1 Grav) [facility] [id number] 20:09:22 Test Item Value Reference Range Interpretation Comments UA Turbidity (test code Cloudy *ABN*(02/10/14 = UA Turbidity) 3:09 PM) [facility] [id number] 20:09:22 Test Item Value Reference Range Interpretation Comments U Preg (test code = U Positive *ABN*(02/10/14 Preg) 3:09 PM) [facility]
[2022-03-28] MEDS ORDERED: NA CHLORIDE 0.9% 1,000 ML ONE (03:14)
[2022-03-28 03:19] LABS: Hematocrit 41.6 % (36.0-45.0); Lymphocytes % 41.9 % (15.3-44.8); MPV 7.8 fL (7.6-11.3); RBC Red Blood Cell Count 4.56 M/uL (3.86-4.86)
[2022-03-28 03:23] LABS: Urine Blood Negative (Negative); Urine Glucose Negative (Negative); Urine Protein Negative (Negative); Urine Specific Gravity >=1.030 (1.005-1.030); Urine pH 6.5 (5.0-7.0)
[2022-03-28 03:38] LABS: BUN Blood Urea Nitrogen 13 mg/dL (7-18); Bicarbonate 27 mmol/L (21-32); Glomerular Filtration Rate 90 ml/min (=/>90); Glucose Level 88 mg/dL (74-106); Potassium 3.6 mmol/L (3.5-5.1); Sodium Level 140 mmol/L (136-145)
[2022-03-28 03:50] LABS: HCG, Quantitative < 1 mIU/mL (1-3)
--- NOTE | 2022-03-28 04:18 | ER ---
Nurse's Notes [facility] Name: Lucila Quiroga Age: 31 yrs Sex: Female : 1990 Arrival Date: 03/28/2022 Time: 02:30 Bed 8 Private MD: Diagnosis: Other and unspecified ovarian cysts;Abdominal pain, unspecified Presentation: 03/28 02:43 Chief complaint: Patient states: "I have been having really bad stomach pain and it vc1 feels like there is something in there moving around. I just got off my period and I have my tubes tied but I was hoping to get an ultrasound to see what is going on.". Coronavirus screen: Vaccine status: Patient reports being unvaccinated. At this time, the client does not indicate any symptoms associated with coronavirus-19. Ebola Screen: No symptoms or risks identified at this time. Onset of symptoms is unknown. 02:43 Method Of Arrival: Ambulatory vc1 02:43 Acuity: COLEMAN 3 vc1 03:15 Initial Sepsis Screen: Does the patient meet any 2 criteria? Yes Does the patient have sm5 a suspected source of infection? No. Patient's initial sepsis screen is negative. Risk Assessment: Do you want to hurt yourself or someone else? Patient reports no desire to harm self or others. Triage Assessment: 02:52 General: Appears in no apparent distress. Behavior is calm, cooperative, appropriate vc1 for age. Pain: Complains of pain in left upper quadrant Pain does not radiate. Pain currently is 7 out of 10 on a pain scale. Neuro: No deficits noted. Cardiovascular: No deficits noted. Respiratory: No deficits noted. GI: Reports upper abdominal pain, "Feels like something is moving" Patient currently denies diarrhea, nausea. : No deficits noted. Derm: No deficits noted. 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 - Social history:: Smoking status: Patient denies any tobacco usage or history of. - Family history:: not pertinent. Screenin:13 Abuse screen: Denies threats or abuse. Denies injuries from another. Nutritional sm5 screening: No deficits noted. Tuberculosis screening: No symptoms or risk factors identified. Fall Risk None identified. Assessment: 03:13 General: Appears in no apparent distress. Behavior is cooperative. Pain: Complains of sm5 pain in left upper quadrant. Neuro: No deficits noted. Yao Agitation-Sedation Scale (RASS): 0 - Alert and Calm Level of Consciousness is awake, alert, obeys commands, Oriented to person, place, time, situation. Cardiovascular: No deficits noted. Capillary refill < 3 seconds Patient's skin is warm and dry. Respiratory: No deficits noted. Airway is patent Trachea midline Respiratory effort is even, unlabored. GI: Abdomen is flat, non-distended, Bowel sounds present X 4 quads. Abd is soft Reports upper abdominal pain, "something moving in her stomach". 04:38 Reassessment: No changes from previously documented assessment. Patient and/or family sm5 updated on plan of care and expected duration. Pain level reassessed. Vital Signs: 02:43 Weight 61.23 kg; Height 5 ft. 3 in. (160.02 cm); Pain 7/10; vc1 03:15 BP 124 / 82; Pulse 82; Resp 18; Pulse Ox 99% on R/A; sm5 04:39 BP 122 / 79; Pulse 80; Resp 16; Pulse Ox 100% on R/A; sm5 02:43 Body Mass Index 23.91 (61.23 kg, 160.02 cm) vc1 ED Course: 02:30 Patient arrived in ED. bp1 02:48 Triage completed. vc1 02:51 Wilian Hawkins MD is Attending Physician. kristin 02:52 Arm band placed on right wrist. vc1 02:58 Taty Cedeño RN is Primary Nurse. 5 03:00 Inserted saline lock: 20 gauge in right antecubital area, using aseptic technique. 5 Blood collected. 03:12 Basic Metabolic Panel Sent. sm5 03:12 Abo/rh Typing Sent. sm5 03:12 CBC with Diff Sent. 5 03:12 Quantitative Hcg Sent. sm5 03:15 Patient has correct armband on for positive identification. Bed in low position. Call 5 light in reach. Side rails up X2. 04:01 Transvaginal Study (Probe) In Process Unspecified. EDSC 04:12 Armani Fang MD is Referral Physician. [facility] 04:38 No provider procedures requiring assistance completed. IV discontinued, intact, sm5 bleeding controlled, No redness/swelling at site. Pressure dressing applied. Administered Medications: 03:12 Drug: NS 0.9% 1000 ml Route: IV; Rate: 1 bolus; Site: right antecubital; sm5 04:39 Follow up: IV Status: Completed infusion; IV Intake: 1000ml 5 Medication: 03:15 VIS not applicable for this client. sm5 Intake: 04:39 IV: 1000ml; Total: 1000ml. [facility] Outcome: 04:17 Discharge ordered by . [facility] 04:38 Discharged to home ambulatory, with family. [facility] 04:38 Condition: stable 04:38 Discharge instructions given to patient, family, Instructed on discharge instructions, follow up and referral plans. medication usage, Demonstrated understanding of instructions, follow-up care, medications, Prescriptions given X 1. 04:40 Patient left the ED. 5 Signatures: Dispatcher [employer] EDSC Wilian Hawkins MD MD cha Paniauga, Brittany bp1 Mazur, Sarah, RN RN sm5 Jessica Sun RN RN vc1
--- NOTE | 2022-03-28 04:18 | EDPHYS ---
Physician Documentation [facility] Name: Lucila Quiroga Age: 31 yrs Sex: Female : 1990 Arrival Date: 03/28/2022 Time: 02:30 Bed 8 Private MD: PHIL Physician Wilian Hawkins HPI: 03/28 03:07 This 31 yrs old Female presents to ER via Ambulatory with complaints of kristin Abdominal Pain. 03:07 The patient presents with pelvic pain, that is located in/on the left lower quadrant. kristin Onset: The symptoms/episode began/occurred just prior to arrival, this morning. Modifying factors: The symptoms are alleviated by nothing, the symptoms are aggravated by nothing. Associated signs and symptoms: The patient has no apparent associated signs or symptoms. Severity of symptoms: At their worst the symptoms were mild, in the emergency department the symptoms are unchanged. The patient is sexually active, reportedly has a single partner. The patient has not experienced similar symptoms in the past. 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 - Social history:: Smoking status: Patient denies any tobacco usage or history of. - Family history:: not pertinent. ROS: 03:07 Constitutional: Negative for fever, chills, and weight loss, Eyes: Negative for injury, kristin pain, redness, and discharge, ENT: Negative for injury, pain, and discharge, Neck: Negative for injury, pain, and swelling, Cardiovascular: Negative for chest pain, palpitations, and edema, Respiratory: Negative for shortness of breath, cough, wheezing, and pleuritic chest pain, Back: Negative for injury and pain, : Negative for injury, bleeding, discharge, and swelling, MS/Extremity: Negative for injury and deformity, Skin: Negative for injury, rash, and discoloration, Neuro: Negative for headache, weakness, numbness, tingling, and seizure. 03:07 Abdomen/GI: Positive for abdominal pain, of the left lower quadrant. Exam: 03:07 Constitutional: This is a well developed, well nourished patient who is awake, alert, kristin and in no acute distress. Head/Face: Normocephalic, atraumatic. Eyes: Pupils equal round and reactive to light, extra-ocular motions intact. Lids and lashes normal. Conjunctiva and sclera are non-icteric and not injected. Cornea within normal limits. Periorbital areas with no swelling, redness, or edema. ENT: Nares patent. No nasal discharge, no septal abnormalities noted. Tympanic membranes are normal and external auditory canals are clear. Oropharynx with no redness, swelling, or masses, exudates, or evidence of obstruction, uvula midline. Mucous membranes moist. Neck: Trachea midline, no thyromegaly or masses palpated, and no cervical lymphadenopathy. Supple, full range of motion without nuchal rigidity, or vertebral point tenderness. No Meningismus. Chest/axilla: Normal chest wall appearance and motion. Nontender with no deformity. No lesions are appreciated. Cardiovascular: Regular rate and rhythm with a normal S1 and S2. No gallops, murmurs, or rubs. Normal PMI, no JVD. No pulse deficits. Respiratory: Lungs have equal breath sounds bilaterally, clear to auscultation and percussion. No rales, rhonchi or wheezes noted. No increased work of breathing, no retractions or nasal flaring. Back: No spinal tenderness. No costovertebral tenderness. Full range of motion. Skin: Warm, dry with normal turgor. Normal color with no rashes, no lesions, and no evidence of cellulitis. MS/ Extremity: Pulses equal, no cyanosis. Neurovascular intact. Full, normal range of motion. Neuro: Awake and alert, GCS 15, oriented to person, place, time, and situation. Cranial nerves II-XII grossly intact. Motor strength 5/5 in all extremities. Sensory grossly intact. Cerebellar exam normal. Normal gait. Psych: Awake, alert, with orientation to person, place and time. Behavior, mood, and affect are within normal limits. 03:07 Abdomen/GI: Inspection: abdomen appears normal, Bowel sounds: normal, Palpation: mild abdominal tenderness, in the left lower quadrant, Liver: no appreciated palpable abnormalities, Hernia: not appreciated. Vital Signs: 02:43 Weight 61.23 kg; Height 5 ft. 3 in. (160.02 cm); Pain 7/10; vc1 03:15 BP 124 / 82; Pulse 82; Resp 18; Pulse Ox 99% on R/A; sm5 04:39 BP 122 / 79; Pulse 80; Resp 16; Pulse Ox 100% on R/A; sm5 02:43 Body Mass Index 23.91 (61.23 kg, 160.02 cm) vc1 MDM: 02:51 Patient medically screened. kristin 03:07 Differential diagnosis: nonspecific abdominal pain, uterine fibroids, urinary tract kristin infection. Data reviewed: vital signs, nurses notes, lab test result(s), radiologic studies, ultrasound. Data interpreted: ekg monitor: rate is 85 beats/min, rhythm is regular, Pulse oximetry: on room air is 96 %. Counseling: I had a detailed discussion with the patient and/or guardian regarding: the historical points, exam findings, and any diagnostic results supporting the discharge/admit diagnosis, lab results, radiology results. 03/28 02:57 Order name: Abo/rh Typing [facility] 03/28 02:57 Order name: Basic Metabolic Panel; Complete Time: 04:11 [facility] 03/28 02:57 Order name: CBC with Diff; Complete Time: 04:11 [facility] 03/28 02:57 Order name: Quantitative Hcg; Complete Time: 04:11 [facility] 03/28 03:23 Order name: Urine Dipstick-Ancillary; Complete Time: 04:11 [facility] 03/28 02:57 Order name: IV Saline Lock; Complete Time: 03:12 [facility] 03/28 02:57 Order name: Labs collected and sent; Complete Time: 03:12 [facility] 03/28 02:57 Order name: NPO; Complete Time: 03:12 [facility] 03/28 02:57 Order name: Urine Dipstick-Ancillary (obtain specimen); Complete Time: 03:22 [facility] 03/28 02:57 Order name: Urine Test (obtain specimen); Complete Time: 03:22 [facility] 03/28 02:57 Order name: US Transvaginal Study (Probe) kristin Administered Medications: 03:12 Drug: NS 0.9% 1000 ml Route: IV; Rate: 1 bolus; Site: right antecubital; sm5 04:39 Follow up: IV Status: Completed infusion; IV Intake: 1000ml sm5 Disposition Summary: 03/28/22 04:17 Discharge Ordered Location: Home kristin Problem: new kristin Symptoms: have improved kristin Condition: Stable kristin Diagnosis - Other and unspecified ovarian cysts kristin - Abdominal pain, unspecified kristin Followup: kristin - With: Private Physician - When: 2 - 3 days - Reason: Recheck today's complaints, Continuance of care, Re-evaluation by your physician Followup: kristin - With: Armani Fang MD - When: 2 - 3 days - Reason: Recheck today's complaints, Re-evaluation by your physician Discharge Instructions: - Discharge Summary Sheet kristin - Abdominal Pain, Adult kristin - Ovarian Cyst kristin - Ovarian Cyst, [id number] kristin Forms: - Medication Reconciliation Form kristin - Thank You Letter kristin - Antibiotic Education kristin - Prescription Opioid Use [facility] Prescriptions: - Motrin IB 200 mg Oral Tablet - take 2 tablet by ORAL route every 6 hours As needed as needed with food; 30 kristin tablet; Refills: 0, Product Selection Permitted Signatures: Dispatcher [employer] Wilian Lao MD MD cha Mazur, Sarah, RN RN sm5 Jessica Sun RN RN vc1
[2022-03-28 05:25] VITALS: BP 122/79; O2SAT 100
--- NOTE | 2022-03-28 13:05 | RAD REPORT ---
EXAM DESCRIPTION: US - Transvaginal Study Probe - 03/28/2022 4:41 am CLINICAL HISTORY: The patient is 31 years old and is Female; ABD PAIN LMP March 24, 2022. TECHNIQUE: Real-time transvaginal pelvic ultrasound with image documentation. Transvaginal imaging was used for better evaluation of the endometrium and adnexa. Real-time duplex ultrasound scan of the arterial and venous flow of the pelvis with color Doppler flow and spectral waveform analysis. COMPARISON: No relevant prior studies available. FINDINGS: Uterus/cervix: Uterus is 8.0 x 3.9 x 6.1 cm in size. Endometrial stripe is 4.4 mm in thickness. No myometrial mass. Right ovary: Right ovary 3.5 x 1.9 x 2.3 cm in size. Small subcentimeter follicles visualized. No torsion. Left ovary: Left ovary 2.4 x 2.8 x 1.8 cm in size. Follicles visualized, largest measuring 1.2 c m. No torsion. Free fluid: No free fluid. Bladder: Empty bladder which cannot be evaluated with this probe. IMPRESSION: 1. No ovarian torsion. 2. Dominant left ovarian follicle 1.2 cm. No follow-up imaging is recommended. Reference: Radiology 2019 Nov;293(2):359-371 Electronically signed by: Flori Gonzales MD 03/28/2022 4:23 AM CDT Due to temporary technical issues with the PACS/Fluency reporting system, reports are being signed by the in house radiologist without review as a courtesy to ensure prompt reporting. The interpreting r adiologist is fully responsible for the content of the report.
== END 2022-03-28 04:40 | disposition home or self-care (01) ==
LOC: ER 02:27
DX: N83.202 Unspecified ovarian cyst, left side (principal); Z88.1 Allergy status to other antibiotic agents
CPT/HCPCS: 36415; 76830; 80048; 81003; 84702; 85025; 86900; 86901; 96360; 99284; J7030

== ENCOUNTER 2024-10-27 18:44 | Emergency (ER) | payer OTHER, SELFPAY ==
[2024-10-27] MEDS ORDERED: ONDANSETRON 4 MG/2 ML VIAL ONE (20:44)
[2024-10-27] MEDS ORDERED: FENTANYL CITR 100 MCG/2 ML ONE ×2 (20:45→22:38)
[2024-10-27] MEDS ORDERED: NA CHLORIDE 0.9% 1,000 ML ONE (20:45)
[2024-10-27 20:51] LABS: Absolute Basophils 0.1 K/uL (0-0.5); Absolute Eosinophils 0.1 K/uL (0-0.5); Absolute Lymphocytes (CBC) 2.6 K/uL (0.7-4.9); Absolute Monocytes 0.4 K/uL (0.1-1.3); Absolute Neutrophil 5.6 K/uL (1.8-8.0); Basophils % 0.6 % (0-1.3); Eosinophils % 1.5 % (0-4.4); Hematocrit 44.7 % (36.0-45.0); Hemoglobin 15.5 g/dL (12.0-15.0); Lymphocytes % 29.4 % (15.3-44.8); MCH 31.7 pg (27.0-35.0); MCHC 34.8 g/dL (32.0-36.0); Monocytes % 4.6 % (3.3-12.3); Neutrophils % 63.9 % (41.7-73.7); Platelets 221 thou/uL (152-406); RBC Red Blood Cell Count 4.91 M/uL (3.86-4.86); Red Cell Distribution Width 12.5 % (12.1-15.2)
[2024-10-27 21:10] LABS: Specific Gravity 1.021 (1.005-1.030); Sqamous Epithelial 20-50 /HPF (None Seen); Urine Bacteria 20-50 /HPF (<20); Urine Bilirubin NEGATIVE (Negative); Urine Blood 3+ (Negative); Urine Clarity Extremely Turbid (Clear); Urine Color Yellow (Yellow); Urine Culture Reflex Order NOT NEEDED; Urine Glucose NEGATIVE (Negative); Urine Ketones TRACE (Negative); Urine Microscopic Reflex YN ORDER UMIC; Urine Mucus 3+ /HPF (None Seen); Urine Nitrite 2+ (Negative); Urine Protein TRACE (Negative); Urine Urobilinogen Normal (Normal); Urine WBC <5 /HPF (<5); Urine pH 7.5 (5.0-7.0)
[2024-10-27 21:14] LABS: Specific Gravity 1.021 (1.005-1.030)
[2024-10-27 21:16] LABS: Anion Gap 5.5 mEq/L (5.0-15.0); Bilirubin Total 0.7 mg/dL (0.2-1.0); Globulin 3.9 g/dL (2.3-3.5); Potassium 3.5 mEq/L (3.5-5.1); Protein, Total 7.9 g/dL (6.4-8.2)
--- NOTE | 2024-10-27 21:45 | RAD REPORT ---
EXAMINATION: CT ABDOMEN AND PELVIS WITH CONTRAST CLINICAL INDICATION: Abdominal pain TECHNIQUE: CT abdomen and pelvis was performed, after the administration of 100 cc Isovue-300.. Sagit yesika and coronal reconstructions were obtained. One or more of the following dose reduction techniques were used: Automated exposure control, adjustment of the mA and kV according to patient si ze, and iterative reconstruction. Unless otherwise specified, incidental findings do not require dedicated imaging follow-up. [id number]. Oral contrast was not given which limits evaluation of bowel and appendix. COMPARISON: .None FINDINGS: Liver, spleen, pancreas, adrenals and kidneys appear unremarkable No evidence of diverticulitis. The appendix is upper limits normal caliber. 2 cm right ovarian cyst. No follow-up imaging recommended. No significant free fluid. Diastases of the rectus abdominis muscles 5 cm : IMPRESSION: 2 cm right ovarian cyst without significant free fluid
[2024-10-27] MEDS ORDERED: CEFTRIAXONE 1000 MG/VIAL ONE (22:37)
[2024-10-27] MEDS ORDERED: SMZ./TMP. 800/160 MG TABLET ONE (22:37)
--- NOTE | 2024-10-27 22:39 | ER ---
Nurse's Notes [facility] Name: Lucila Quiroga Age: 34 yrs Sex: Female : 1990 Arrival Date: 10/27/2024 Time: 18:44 Bed 16 Private MD: Diagnosis: Lower abdominal pain, unspecified;UTI/ Urinary tract infection, site not specified Presentation: 10/27 19:11 Coronavirus screen: Client denies travel out of the [place] in the last 14 days. Ebola cm10 Screen: Patient denies travel to an Ebola-affected area in the 21 days before illness onset. Initial Sepsis Screen: Does the patient meet any 2 criteria? No. Patient's initial sepsis screen is negative. Does the patient have a suspected source of infection? No. Patient's initial sepsis screen is negative. Risk Assessment: Do you want to hurt yourself or someone else? Patient reports no desire to harm self or others. Onset of symptoms is unknown. 19:11 Method Of Arrival: Ambulatory 10 19:11 Acuity: COLEMAN 3 cm10 19:13 Chief complaint: Patient states: PELVIC PAIN THAT HAS BEEN AN ONGOING ISSUE FOR THE 10 LAST 2 YEARS. PT STATES THAT LAST NIGHT THE PAIN GOT WORSE. PT REPORTS THAT SHE STARTED HER CYCLE ON 10/16 AND CONTINUES TO HAVE BLEEDING. PT STATES THAT THE BLEEDING IS A LOT LESS TODAY. Triage Assessment: 19:12 General: Appears in no apparent distress. uncomfortable, Behavior is calm, cooperative, cm10 appropriate for age. Neuro: No deficits noted. Level of Consciousness is awake, alert, obeys commands, Oriented to person, place, time, situation, Appropriate for age. Respiratory: No deficits noted. Airway is patent Respiratory effort is even, unlabored, Respiratory pattern is regular, symmetrical. 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 - Infectious Disease History:: Denies. - Social history:: Smoking status: unknown. Screenin:57 [facility] ED Fall Risk Assessment (Adult) History of falling in the last 3 months, aa10 including since admission No falls in past 3 months (0 pts) Confusion or Disorientation No (0 pts) Intoxicated or Sedated No (0 pts) Impaired Gait No (0 pts) Mobility Assist Device Used No (0 pt) Altered Elimination No (0 pt) Score/Fall Risk Level 0 - 2 = Low Risk Oriented to surroundings, Maintained a safe environment, Educated pt \T\ family on fall prevention, incl call for assistance when getting out of bed, Assessed \T\ reinforced patient's understanding of fall precautions, Provided non-skid footwear, Hourly rounding (assess needs \T\ fall precautionary measures) done. Abuse screen: Denies threats or abuse. Denies injuries from another. Nutritional screening: No deficits noted. Tuberculosis screening: No symptoms or risk factors identified. Assessment: 20:45 Reassessment: Patient and/or family updated on plan of care and expected duration. Pain br2 level reassessed. Patient is alert, oriented x 3, equal unlabored respirations, skin warm/dry/pink. General: Appears in no apparent distress. comfortable, Behavior is calm, cooperative. Pain: Complains of pain in left lower quadrant Pain does not radiate. Pain currently is 8 out of 10 on a pain scale. Neuro: Yao Agitation-Sedation Scale (RASS): 0 - Alert and Calm Level of Consciousness is awake, alert, obeys commands, Oriented to person, place, time, situation. Cardiovascular: Capillary refill < 3 seconds. Respiratory: Airway is patent Respiratory effort is even, unlabored, Respiratory pattern is regular, symmetrical. GI: Abdomen is flat, Bowel sounds present X 4 quads. Abdomen is tender to palpation in left lower quadrant. : No signs and/or symptoms were reported regarding the genitourinary system. EENT: No signs and/or symptoms were reported regarding the EENT system. Derm: No signs and/or symptoms reported regarding the dermatologic system. 21:30 Reassessment: Patient and/or family updated on plan of care and expected duration. Pain br2 level reassessed. Patient is alert, oriented x 3, equal unlabored respirations, skin warm/dry/pink. Patient states feeling better. Vital Signs: 19:11 BP 124 / 90; Pulse 89; Resp 15; Temp 98.4; Pulse Ox 100% on R/A; Pain 8/10; cm10 19:15 Weight 72.57 kg; Height 5 ft. 3 in. ; cm10 21:30 BP 128 / 85; Pulse 93; Resp 18; Pulse Ox 100% on R/A; br2 21:30 BP 130 / 82; Pulse 91; Resp 18 S; Pulse Ox 99% on R/A; Pain 4/10; br2 19:15 Body Mass Index 28.34 (72.57 kg, 160.02 cm) cm10 19:11 Pain Scale: Adult cm10 21:30 Pain Scale: Adult br2 ED Course: 18:47 Patient arrived in ED. al6 18:51 Wilian Elizondo PA is PHCP. cp 18:51 Wilian Hawkins MD is Attending Physician. cp 19:12 Triage completed. cm10 19:12 Arm band placed on right wrist. Patient placed in waiting room. cm10 20:32 Lelo Fierro, RN is Primary Nurse. br2 20:41 Inserted saline lock: 20 gauge in left antecubital area, using aseptic technique. Blood oe collected. Flushed with 10 mL NS. 20:42 CBC with Diff Sent. oe 20:42 CMP Sent. oe 20:42 Lipase Sent. oe 20:42 Test, Urine Sent. oe 20:42 Urinalysis w/ reflexes Sent. oe 20:57 Patient has correct armband on for positive identification. Allergy band placed. Fall aa10 risk band placed. Placed in gown. Bed in low position. Call light in reach. Side rails up X2. Provided Education on: plan of care. 21:30 Abdomen In Process Unspecified. EDMS 22:37 US Transvaginal Study (Probe) In Process Unspecified. EDMS 22:46 No provider procedures requiring assistance completed. aa10 22:58 IV discontinued, intact, bleeding controlled, No redness/swelling at site. Pressure br2 dressing applied. Administered Medications: 20:56 Drug: Ondansetron IVP 4 mg IVP once; over 2 minutes Route: IVP; Site: left antecubital; aa10 22:46 Follow up: Response: No adverse reaction; Marked relief of symptoms aa10 20:56 Drug: NS 0.9% IV 1000 ml IV at 1 bolus Per protocol; to be given as a bolus over 60 aa10 minutes Route: IV; Rate: 1 bolus; Site: left antecubital; 22:45 Follow up: Response: No adverse reaction; Marked relief of symptoms; IV Status: aa10 Completed infusion; IV Intake: 1000ml 20:56 Drug: fentaNYL (PF) IVP 25 mcg IVP once Route: IVP; Site: left antecubital; aa10 21:14 Follow up: Response: No adverse reaction; Marked relief of symptoms br2 22:54 Drug: Rocephin IV 1 grams IV at calculated rate once; Given slow IV push per pharmacy br2 instructions Route: IV; Rate: calculated rate; Site: left antecubital; 22:55 Follow up: Response: Medication administered at discharge.; IV Intake: 10ml br2 22:54 Drug: fentaNYL (PF) IVP 25 mcg IVP once Route: IVP; Site: left antecubital; br2 22:55 Follow up: Response: Medication administered at discharge. br2 22:54 Drug: Trimethoprim-Sulfamethoxazole PO (160 mg-800 mg (DS) 1 tablet PO once Route: PO; br2 22:55 Follow up: Response: Medication administered at discharge. br2 Medication: 22:46 VIS not applicable for this client. aa10 Intake: 22:45 IV: 1000ml; Total: 1000ml. aa10 22:55 IV: 10ml; Total: 1010ml. br2 Outcome: 22:39 Discharge ordered by MD. cp 22:57 Discharged to home ambulatory, br2 22:57 Condition: good 22:57 Discharge instructions given to patient, Instructed on discharge instructions, follow up and referral plans. medication usage, Demonstrated understanding of instructions, follow-up care, medications, Prescriptions given X 2, 22:58 Patient left the ED. br2 Signatures: Dispatcher [employer] EDMS Wilian Elizondo PA PA cp Espinosa, Orlando oe Martinez, Clarissa, RN RN cm10 Lelo Fierro RN RN br2 Soraya Lowe RN RN aa10 Xenia Guzman Corrections: (The following items were deleted from the chart) 19:13 19:11 Chief complaint: Patient states: PELVIC PAIN ONSET LAST NIGHT. PT STATES THAT SHE cm10 STARTED HER PERIOD ON 10/16 AND CONTINUES TO HAVE BLEEDING. PT WAS TOLD TO COME TO THE ER BY HER ACID PATROLLER. cm10
--- NOTE | 2024-10-27 22:39 | EDPHYS ---
Physician Documentation [facility] Name: Lucila Quiroga Age: 34 yrs Sex: Female : 1990 Arrival Date: 10/27/2024 Time: 18:44 Bed 16 Private MD: ED Physician Wilian Hawkins HPI: 10/27 20:25 This 34 yrs old Female presents to ER via Ambulatory with complaints of Abdominal Pain, cp Pelvic Pain, Headache. 20:25 The patient presents with abdominal pain in the lower abdomen. cp 20:25 Onset: The symptoms/episode began/occurred 2 year(s) ago, and became worse last night. cp 20:25 Associated signs and symptoms: Pertinent positives: vaginal bleeding, Pertinent cp negatives: chest pain, constipation, diarrhea, fever. The symptoms are described as constant. [employer]: 19:15 LMP 10/16/2024, unknown cm10 Historical: - Allergies: 19:12 Ciprofloxacin; cm10 19:12 Macrobid; cm10 19:12 Naproxen; cm10 - PMHx: 19:12 None; cm10 - PSHx: 19:12 None; cm10 - Immunization history:: Adult Immunizations up to date. - Infectious Disease History:: Denies. - Social history:: Smoking status: unknown. ROS: 20:30 Constitutional: Negative for body aches, chills, fever, poor PO intake, cp 20:30 Abdomen/GI: Positive for abdominal pain, of the left lower quadrant, Negative for cp vomiting, diarrhea, constipation, 20:30 : Positive for vaginal bleeding, 20:30 Eyes: Negative for injury, pain, redness, and discharge, cp 20:30 Cardiovascular: Negative for chest pain, edema, palpitations, 20:30 Respiratory: Negative for cough, shortness of breath, wheezing, 20:30 Neuro: Positive for headache, 20:30 All other systems are negative, cp Exam: 20:35 Constitutional: The patient appears in no acute distress, alert, awake, non-toxic, well cp developed, well nourished, uncomfortable, 20:35 Head/Face: Normocephalic, atraumatic. cp 20:35 Eyes: Periorbital structures: appear normal, Conjunctiva: normal, no exudate, no injection, Sclera: no appreciated abnormality, Lids and lashes: appear normal, bilaterally, 20:35 ENT: External ear(s): are unremarkable, Nose: is normal, Mouth: Lips: moist, Oral mucosa: moist, Posterior pharynx: Airway: no evidence of obstruction, patent, 20:35 Neck: ROM/movement: is normal, is supple, without pain, no range of motions limitations, 20:35 Chest/axilla: Inspection: normal, 20:35 Cardiovascular: Rate: normal, Rhythm: regular, cp 20:35 Respiratory: the patient does not display signs of respiratory distress, Respirations: normal, no use of accessory muscles, no retractions, labored breathing, is not present, Breath sounds: are clear throughout, no decreased breath sounds, no stridor, no wheezing, 20:35 Abdomen/GI: Inspection: abdomen appears normal, Bowel sounds: active, all quadrants, Palpation: soft, in all quadrants, moderate abdominal tenderness, in the left lower quadrant, rebound tenderness, is not appreciated, involuntary guarding, is not appreciated, 20:35 Back: CVA tenderness, is absent, 20:35 Neuro: Orientation: to person, place \T\ time. Mentation: is normal, 22:27 : Pelvic Exam: The exam is refused by the patient/guardian. The risks and cp consequences are understood by the patient, Vital Signs: 19:11 BP 124 / 90; Pulse 89; Resp 15; Temp 98.4; Pulse Ox 100% on R/A; Pain 8/10; cm10 19:15 Weight 72.57 kg; Height 5 ft. 3 in. ; cm10 21:30 BP 128 / 85; Pulse 93; Resp 18; Pulse Ox 100% on R/A; br2 21:30 BP 130 / 82; Pulse 91; Resp 18 S; Pulse Ox 99% on R/A; Pain 4/10; br2 19:15 Body Mass Index 28.34 (72.57 kg, 160.02 cm) cm10 19:11 Pain Scale: Adult cm10 21:30 Pain Scale: Adult br2 MDM: 19:15 Medical Screening Exam initiated cp 22:38 Data reviewed: vital signs, nurses notes, lab test result(s), radiologic studies, CT cp scan, ultrasound, and as a result, I will discharge patient. 22:38 Differential diagnosis: appendicitis, diverticulitis, Ectopic , non-specific cp abd pain, Ovarian Torsion, Pelvic Inflammatory Disease, Pyelonephritis, Tubal Ovarian Abcess, Ureterolithiasis, urinary tract infection. I considered the following discharge prescriptions or medication management in the emergency department Medications were administered in the Emergency Department. See MAR. Counseling: I had a detailed discussion with the patient and/or guardian regarding the historical points, exam findings, and any diagnostic results supporting the discharge/admit diagnosis, lab results, radiology results, the need for outpatient follow up, an OB/Gyne specialist, to return to the emergency department if symptoms worsen or persist or if there are any questions or concerns that arise at home. Response to treatment: the patient's symptoms have mildly improved after treatment. Special discussion: Based on the patient's Hx, exam, and Dx evaluation, there is no indication for emergent surgery or inpatient Tx. It is understood by the patient/guardian that if the Sx's persist or worsen they need to return immediately for re-evaluation. 10/27 20:23 Order name: CBC with Diff; Complete Time: 21:49 cp 10/27 21:49 Interpretation: Normal except: RBC 4.91; HGB 15.5. cp 10/27 20:23 Order name: CMP; Complete Time: 21:49 cp 10/27 21:50 Interpretation: Normal except: AST 14; GLOB 3.9; A/G 1.0. cp 10/27 20:23 Order name: Lipase; Complete Time: 21:49 cp 10/27 20:23 Order name: Test, Urine; Complete Time: 21:49 cp 10/27 20:23 Order name: Urinalysis w/ reflexes; Complete Time: 21:49 cp 10/27 21:50 Interpretation: Normal except: [facility] Extremely Turbid; UKET TRACE; UBLD 3+; UPH 7.5; cp UPROT TRACE; UNIT 2+; URBC 5-10; UBACT 20-50; SQEPI 20-50; MUCUS 3+. 10/27 21:23 Order name: Abdomen ; Complete Time: 21:49 EDMS 10/27 21:51 Interpretation: Report reviewed. 10/27 21:53 Order name: US Transvaginal Study (Probe) 10/27 20:23 Order name: IV Saline Lock; Complete Time: 20:42 cp 10/27 20:23 Order name: Labs collected and sent; Complete Time: 20:42 cp Administered Medications: 20:56 Drug: Ondansetron IVP 4 mg IVP once; over 2 minutes Route: IVP; Site: left antecubital; aa10 22:46 Follow up: Response: No adverse reaction; Marked relief of symptoms aa10 20:56 Drug: NS 0.9% IV 1000 ml IV at 1 bolus Per protocol; to be given as a bolus over 60 aa10 minutes Route: IV; Rate: 1 bolus; Site: left antecubital; 22:45 Follow up: Response: No adverse reaction; Marked relief of symptoms; IV Status: aa10 Completed infusion; IV Intake: 1000ml 20:56 Drug: fentaNYL (PF) IVP 25 mcg IVP once Route: IVP; Site: left antecubital; aa10 21:14 Follow up: Response: No adverse reaction; Marked relief of symptoms br2 22:54 Drug: Rocephin IV 1 grams IV at calculated rate once; Given slow IV push per pharmacy br2 instructions Route: IV; Rate: calculated rate; Site: left antecubital; 22:55 Follow up: Response: Medication administered at discharge.; IV Intake: 10ml br2 22:54 Drug: fentaNYL (PF) IVP 25 mcg IVP once Route: IVP; Site: left antecubital; br2 22:55 Follow up: Response: Medication administered at discharge. br2 22:54 Drug: Trimethoprim-Sulfamethoxazole PO (160 mg-800 mg (DS) 1 tablet PO once Route: PO; br2 22:55 Follow up: Response: Medication administered at discharge. br2 Disposition Summary: 10/27/24 22:39 Discharge Ordered Notes: Location: Home cp Problem: new cp Symptoms: have improved cp Condition: Stable cp Diagnosis - Lower abdominal pain, unspecified cp - UTI/ Urinary tract infection, site not specified cp Followup: cp - With: Private Physician - When: 1 week - Reason: Recheck today's complaints Discharge Instructions: - Discharge Summary Sheet cp - Abdominal Pain, Adult cp - Urinary Tract Infection, Adult cp Forms: - Medication Reconciliation Form cp - Antibiotic Education cp - Prescription Opioid Use cp - Patient Portal Instructions cp - Leadership Thank You Letter cp Prescriptions: - Bactrim DS 800-160 mg Oral Tablet - take 1 tablet ORAL route every 12 hours for 7 days; 14 tablet; Refills: 0, cp Product Selection Permitted - dicyclomine 20 mg Oral tablet - take 1 tablet ORAL route 4 times per day; 30 tablet; Refills: 0, Product cp Selection Permitted Addendum: 10/29/2024 09:36 Co-signature as Attending Physician, Wilian Hawkins MD I agree with the assessment and c perez plan of care. Signatures: Dispatcher [employer] [facility] iWlian Hawkins MD MD cha Page, Corey, PA PA cp Donna Love RN RN cm10 Lelo Fierro RN RN br2 Soraya Lowe RN RN aa10 Corrections: (The following items were deleted from the chart) 10/27 21:22 20:23 Abdomen Pelvis W Con+CT.RAD.BRZ ordered. [facility] 22:31 20:25 The patient presents with abdominal pain in the lower abdomen, vaginal bleeding. cp cp
--- NOTE | 2024-10-27 23:21 | RAD REPORT ---
EXAM: US Pelvis Transvaginal CLINICAL HISTORY: The patient is 34 years old and is Female; VAGINAL BLEEDING TECHNIQUE: Real-time transvaginal pelvic ultrasound with image documentation. Transvaginal imaging was used for better evaluation of the endometrium and adnexa. COMPARISON: No relevant prior studies available. FINDINGS: UTERUS/CERVIX: The uterus measures 9.6 x 4.4 x 5.7 cm. Endometrium measures 0.9 cm. Small amount of fluid is noted within the endocervical canal. No myometrial mass. RIGHT OVARY: The right ovary measures 3.8 x 2.0 x 2.7 cm. Right follicular cysts are noted. No fo llow-up imaging is recommended. Normal blood flow. LEFT OVARY: The left ovary is not visualized secondary to bowel gas. FREE FLUID: No free fluid. BLADDER: Empty bladder which cannot be evaluated with this probe. IMPRESSION: Unremarkable pelvic ultrasound. Electronically signed by: Emily Quezada MD 10/27/2024 11:15 PM [facility] Due to temporary technical issues with the [employer] reporting system, reports are being signed by the in-house radiologist without review as a courtesy to ensure prompt reporting the interpreting radiologist is fully responsible for the content of the report. Transcribed Date/Time: 10/27/2024 11:21 PM
[2024-10-30 01:47] VITALS: BP 130/82; TEMP 98.4; O2SAT 99
== END 2024-10-27 22:58 | disposition home or self-care (01) ==
LOC: ER 18:44
DX: N39.0 Urinary tract infection, site not specified (principal)
CPT/HCPCS: 96361; 85025; 81001; 36415; 81025; 83690; 80053; 74177; 76830; 96375; 96374; 99284; Q9967; J3010 ×2; J2405; J7030; J0696